=== PATIENT | female | born 1935 | race Caucasian/White ===

== ENCOUNTER 2021-02-03 05:41 | Outpatient (CLI) | payer MEDICARE, OTHER ==
[~2021-02-03] VITALS: Ht 162.6 cm; Wt 88.0 kg
[~2021-02-03 05:41] MED LIST: ALLO300T2 PO; ALLP300T PO; ANAS1TAB7 PO; DLT120CCR PO; FOSI20TA3 PO; FSNP20T PO; MULT-974 PO; NAPR220C PO; OMG1KC PO; Pregabalin PO; TIMO5DRO5 OU; TRIA1TAB3 PO
[2021-02-03 11:06] VITALS: BP 165/77
[2021-02-03 11:49] LABS: BASOPHILS # (AUTO) 0.1 10^3/uL (0.0-0.1); BASOPHILS % (AUTO) 1 % (0-10); EOSINOPHILS # (AUTO) 0.2 10^3/uL (0.0-0.3); EOSINOPHILS % (AUTO) 2 % (0-10); HEMATOCRIT 37 % (35-52); HEMOGLOBIN 12.4 g/dL (11.5-16.0); LYMPHOCYTES # (AUTO) 2.6 10^3/uL (1.0-4.0); LYMPHOCYTES % (AUTO) 33 % (12-44); MEAN CORPUSCULAR HEMOGLOBIN 32 pg (25-34); MEAN CORPUSCULAR HGB CONC 34 g/dL (32-36); MEAN CORPUSCULAR VOLUME 95 fL (80-99); MEAN PLATELET VOLUME 10.3 fL (9.0-12.2); MONOCYTES # (AUTO) 0.5 10^3/uL (0.0-1.0); MONOCYTES % (AUTO) 6 % (0-12); NEUTROPHILS # (AUTO) 4.4 10^3/uL (1.8-7.8); NEUTROPHILS % (AUTO) 57 % (42-75); PLATELET COUNT 215 10^3/uL (130-400); WHITE BLOOD COUNT 7.7 10^3/uL (4.3-11.0)
[2021-02-03] MEDS ORDERED: TIMO5DRO5 OU (11:49)
[2021-02-03] MEDS ORDERED: TRIA1CAP4 PO (11:49)
[2021-02-03] MEDS ORDERED: LOPE-134 PO (11:49)
[2021-02-03] MEDS ORDERED: MULT-1136 PO (11:49)
[2021-02-03] MEDS ORDERED: ALLO300T2 PO (11:49)
[2021-02-03] MEDS ORDERED: FOSI10TA6 PO (11:49)
[2021-02-03 12:07] LABS: CALCIUM 9.2 MG/DL (8.5-10.1); CREATININE SERUM 1.58 MG/DL (0.60-1.30)
== END 2021-02-03 12:17 ==
LOC: PREOP 05:41
PROVIDERS: ATTEND Otolaryngology Otolaryngology/Facial Plastic Surgery
DX: Z01.812 Encounter for preprocedural laboratory examination (principal); Z01.810 Encounter for preprocedural cardiovascular examination; L98.9 Disorder of the skin and subcutaneous tissue, unspecified
CPT/HCPCS: 36415; 80048; 85025; 93005

== ENCOUNTER 2021-02-10 06:27 | Day surgery (SDC) | payer MEDICARE, OTHER ==
[~2021-02-10] VITALS: Ht 162.6 cm; Wt 88.0 kg
[2021-02-10] VITALS (10 sets, daily range): BP systolic 161–184; BP diastolic 66–80
[~2021-02-10 06:27] MED LIST changes: +FOSI10TA6 PO; +LOPE-134 PO; +MULT-1136 PO; +TRIA1CAP4 PO
[2021-02-10] MEDS ORDERED: ceFAZolin INJECTION 1,000 MG in WATER (STERILE) FOR INJECTION 10 ML IV ONE (06:45)
[2021-02-10] MEDS ORDERED: LACTATED RINGERS 1,000 ML IV PRN (06:45)
--- NOTE | 2021-02-10 07:23 | Progress Note-Pre Operative ---
Pre-Operative Progress Note H&P Reviewed The H&P was reviewed, patient examined and no changes noted. Date Seen by Provider: Feb 10, 2021 Time Seen by Provider: 07:30 Date H&P Reviewed: Feb 10, 2021 Time H&P Reviewed: 07:30 Pre-Operative Diagnosis: Scalp Lesion FUAD GRIDER MD Feb 10, 2021 07:23
[2021-02-10] MEDS ORDERED: proPOfol 200 MG/20 ML (DIPRIVAN) VIAL IV ONE (07:27)
[2021-02-10] MEDS ORDERED: SEVOFLURANE (ULTANE) 15 ML INHAL SOLN ONE ×2 (07:27→09:25)
[2021-02-10] MEDS ORDERED: LIDOCAINE PF 2% 5 ML (XYLOCAINE) VIAL ONE (07:27)
[2021-02-10] MEDS ORDERED: ONDANSETRON 4 MG/2 ML (SDV) Z0FRAN ONE (07:27)
[2021-02-10] MEDS ORDERED: ESMOLOL 100 MG/10 ML (BREVIBLOC) VIAL ONE (07:30)
[2021-02-10] MEDS ORDERED: LIDOCAINE/EPI 1%-1:100,000 (XYLOCAINE) 20ML ONE (07:32)
[2021-02-10] MEDS ORDERED: MUPIROCIN 2% OINT 22 GM (BACTROBAN) TUBE ONE (08:44)
--- NOTE | 2021-02-10 09:05 | Progress Note-Post Operative ---
Post-Operative Progess Note Surgeon (s)/Credit Reporter (s) Surgeon FUAD GRIDER MD Credit Reporter n/a Pre-Operative Diagnosis Scalp Lesion Post-Operative Diagnosis same Post-Op Procedure Note Date of Procedure: Feb 10, 2021 Name of Procedure Performed: Excision of 3cm by 2cm MIdline Scalp Lesion with Intermediate Repair Description & Findings Description and Findings: n/a Anesthesia Type lma Estimated Blood Loss minimal Packing none. Specimen(s) collected/removed scalp lesion for frozen section FUAD GRIDER MD Feb 10, 2021 09:05
[2021-02-10] MEDS ORDERED: ACETAMINOPHEN 325 MG TABLET PO PRN (09:15)
[2021-02-10] MEDS ORDERED: HYDROcodone/APAP 5 MG/325 MG (LORTAB) TAB PO PRN (09:15)
[2021-02-10] MEDS ORDERED: ONDANSETRON 4 MG/2 ML (SDV) Z0FRAN IVP PRN (10:00)
[2021-02-10] MEDS ORDERED: CEPH500T PO (10:55)
[2021-02-10] MEDS ORDERED: ACHD5005 PO (10:55)
== END 2021-02-10 11:25 | disposition home or self-care (01) ==
LOC: SDC 06:27
PROVIDERS: ATTEND Otolaryngology Otolaryngology/Facial Plastic Surgery
DX: C44.49 Other specified malignant neoplasm of skin of scalp and neck (principal); I10 Essential (primary) hypertension; E11.39 Type 2 diabetes mellitus with other diabetic ophthalmic complication; H42 Glaucoma in diseases classified elsewhere; E66.9 Obesity, unspecified; M19.90 Unspecified osteoarthritis, unspecified site; Z87.891 Personal history of nicotine dependence; Z79.899 Other long term (current) drug therapy; Z68.33 Body mass index [BMI] 33.0-33.9, adult; Z80.9 Family history of malignant neoplasm, unspecified; Z79.891 Long term (current) use of opiate analgesic
CPT/HCPCS: 87081; 88305; 88331; 88332; 88341; 88342; 88344

== ENCOUNTER 2021-10-17 05:35 | Outpatient (CLI) | payer MEDICARE, OTHER ==
[~2021-10-17] VITALS: Ht 165.1 cm; Wt 82.7 kg
[~2021-10-17 05:35] MED LIST changes: +ACHD5005 PO; +CEPH500T PO; +FOSI10TA PO; -FOSI10TA6 PO
== END 2021-10-18 11:03 | disposition home or self-care (01) ==
LOC: PREOP 05:35
PROVIDERS: ATTEND Otolaryngology Otolaryngology/Facial Plastic Surgery
DX: Z01.818 Encounter for other preprocedural examination (principal)

== ENCOUNTER 2021-10-20 08:31 | Day surgery (SDC) | payer MEDICARE, OTHER ==
[2021-10-20] VITALS (12 sets, daily range): BP systolic 135–226; BP diastolic 62–115
[~2021-10-20] VITALS: Ht 165.1 cm; Wt 82.7 kg
[2021-10-20] MEDS ORDERED: LIDOCAINE/EPI 1%-1:200,000 (XYLOCAINE) 30 ML VIAL ONE (09:19)
[2021-10-20] MEDS ORDERED: proPOfol 200 MG/20 ML (DIPRIVAN) VIAL IV ONE (09:31)
[2021-10-20] MEDS ORDERED: LIDOCAINE PF 2% 5 ML (XYLOCAINE) VIAL ONE (09:31)
[2021-10-20] MEDS ORDERED: ONDANSETRON 4 MG/2 ML (SDV) Z0FRAN ONE (09:31)
[2021-10-20 09:53] LABS: BASOPHILS # (AUTO) 0.1 10^3/uL (0.0-0.1); BASOPHILS % (AUTO) 1 % (0-10); EOSINOPHILS # (AUTO) 0.2 10^3/uL (0.0-0.3); EOSINOPHILS % (AUTO) 3 % (0-10); HEMATOCRIT 37 % (35-52); HEMOGLOBIN 12.3 g/dL (11.5-16.0); LYMPHOCYTES # (AUTO) 2.2 10^3/uL (1.0-4.0); LYMPHOCYTES % (AUTO) 30 % (12-44); MEAN CORPUSCULAR HEMOGLOBIN 31 pg (25-34); MEAN CORPUSCULAR HGB CONC 33 g/dL (32-36); MEAN CORPUSCULAR VOLUME 94 fL (80-99); MEAN PLATELET VOLUME 10.2 fL (9.0-12.2); MONOCYTES # (AUTO) 0.5 10^3/uL (0.0-1.0); MONOCYTES % (AUTO) 7 % (0-12); NEUTROPHILS # (AUTO) 4.3 10^3/uL (1.8-7.8); NEUTROPHILS % (AUTO) 59 % (42-75); PLATELET COUNT 209 10^3/uL (130-400); WHITE BLOOD COUNT 7.3 10^3/uL (4.3-11.0)
[2021-10-20] MEDS ORDERED: ROCURONIUM 50 MG/5 ML (ZEMURON) VIAL IV ONE (10:16)
[2021-10-20 10:21] LABS: CALCIUM 9.1 MG/DL (8.5-10.1); CREATININE SERUM 1.48 MG/DL (0.60-1.30); POTASSIUM 3.7 MMOL/L (3.6-5.0)
[2021-10-20] MEDS ORDERED: MUPIROCIN 2% OINT 22 GM (BACTROBAN) TUBE ONE (10:35)
[2021-10-20] MEDS ORDERED: NEOSTIGMINE 3 MG/3 ML VIAL ONE (10:50)
[2021-10-20] MEDS ORDERED: GLYCOPYRROLATE 0.2 MG/ML (ROBINUL) 2 ML VIAL ONE (10:50)
--- NOTE | 2021-10-20 10:51 | Progress Note-Pre Operative ---
Pre-Operative Progress Note H&P Reviewed The H&P was reviewed, patient examined and no changes noted. Date Seen by Provider: Oct 20, 2021 Time Seen by Provider: 10:00 Date H&P Reviewed: Oct 20, 2021 Time H&P Reviewed: 10:00 Pre-Operative Diagnosis: Right Posterior Scalp Lesion FUAD GRIDER MD Oct 20, 2021 10:51
--- NOTE | 2021-10-20 10:52 | Progress Note-Post Operative ---
Post-Operative Progess Note Surgeon (s)/Fryline Attendant (s) Surgeon FUAD GRIDER MD Fryline Attendant n/a Pre-Operative Diagnosis Right Posterior Scalp Lesion Post-Operative Diagnosis same Post-Op Procedure Note Date of Procedure: Oct 20, 2021 Name of Procedure Performed: Excision of Right Posterior Scalp Lesion with Complex Repair Description & Findings Description and Findings: n/a Anesthesia Type get Estimated Blood Loss minimal Packing none. Specimen(s) collected/removed right posterior scalp lesion FUAD GRIDER MD Oct 20, 2021 10:52
[2021-10-20] MEDS ORDERED: LACTATED RINGERS 1,000 ML IV PRN (11:00)
[2021-10-20] MEDS ORDERED: ACETAMINOPHEN 325 MG TABLET PO PRN (11:00)
[2021-10-20] MEDS ORDERED: HYDROcodone/APAP 5 MG/325 MG (LORTAB) TAB PO PRN (11:00)
[2021-10-20] MEDS ORDERED: LABETALOL HCL 20 MG/4 ML VIAL ONE (11:19)
[2021-10-20] MEDS: LABETALOL HCL 20 MG/4 ML VIAL IV PRN ×2 (11:25→11:30)
[2021-10-20] MEDS ORDERED: ONDANSETRON 4 MG/2 ML (SDV) Z0FRAN IVP PRN (11:30)
[2021-10-20] MEDS ORDERED: morphine INJ 10 MG/ML 1ML (SYR OR VIAL) IVP ONE (11:30)
[2021-10-20] MEDS ORDERED: SEVOFLURANE (ULTANE) 15 ML INHAL SOLN ONE (12:01)
[2021-10-20] MEDS ORDERED: hydrALAZINE (APESOLINE) 20 MG/ML VIAL ONE (12:08)
--- NOTE | 2021-10-20 12:12 | Anesthesia-General Post-Op ---
General Patient Condition Mental Status/LOC: Same as Preop Cardiovascular: Satisfactory Nausea/Vomiting: Absent Respiratory: Satisfactory Pain: Controlled Complications: Absent Post Op Complications Complications None Follow Up Care/Instructions Patient Instructions None needed. Anesthesia/Patient Condition Patient Condition Patient is doing well, no complaints, she is hypertensive but at baseline. She has received labetalol 10 mg IV but now bradycardic so will give hydralazine 5 mg IV and go back to day surgery. She has no apparent adverse anesthesia problems. DAKOTA GAGE DO Oct 20, 2021 12:12
[2021-10-20] MEDS ORDERED: hydrALAZINE (APESOLINE) 20 MG/ML VIAL IV ONE (12:15)
[2021-10-20] MEDS ORDERED: CEPH500T PO (13:12)
[2021-10-20] MEDS ORDERED: ACHD5005 PO (13:12)
[2021-10-25] MEDS ORDERED: ROSU5TAB13 PO (11:03)
[2021-10-25] MEDS ORDERED: ASPI-1238 PO (11:03)
[2021-10-25] MEDS ORDERED: AMLO-250 PO (11:03)
[2021-10-25] MEDS ORDERED: CEFD300C3 PO (11:03)
== END 2021-10-20 14:25 | disposition home or self-care (01) ==
LOC: SDC 08:31
PROVIDERS: ATTEND Otolaryngology Otolaryngology/Facial Plastic Surgery
DX: C44.42 Squamous cell carcinoma of skin of scalp and neck (principal); I10 Essential (primary) hypertension; Z87.891 Personal history of nicotine dependence; Z79.899 Other long term (current) drug therapy
CPT/HCPCS: 36415; 80048; 85025; 87081; 93005

== ENCOUNTER 2021-10-23 09:32 | Observation (INO) | payer MEDICARE, OTHER ==
[~2021-10-23] VITALS: Ht 165.1 cm; Wt 82.7 kg
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
[2021-10-23 10:08] LABS: BASOPHILS # (AUTO) 0.1 10^3/uL (0.0-0.1); BASOPHILS % (AUTO) 1 % (0-10); EOSINOPHILS # (AUTO) 0.2 10^3/uL (0.0-0.3); EOSINOPHILS % (AUTO) 3 % (0-10); HEMATOCRIT 37 % (35-52); HEMOGLOBIN 12.3 g/dL (11.5-16.0); LYMPHOCYTES # (AUTO) 2.4 10^3/uL (1.0-4.0); LYMPHOCYTES % (AUTO) 32 % (12-44); MEAN CORPUSCULAR HEMOGLOBIN 32 pg (25-34); MEAN CORPUSCULAR HGB CONC 34 g/dL (32-36); MEAN CORPUSCULAR VOLUME 94 fL (80-99); MEAN PLATELET VOLUME 10.4 fL (9.0-12.2); MONOCYTES # (AUTO) 0.5 10^3/uL (0.0-1.0); MONOCYTES % (AUTO) 7 % (0-12); NEUTROPHILS # (AUTO) 4.3 10^3/uL (1.8-7.8); NEUTROPHILS % (AUTO) 57 % (42-75); PLATELET COUNT 206 10^3/uL (130-400); WHITE BLOOD COUNT 7.5 10^3/uL (4.3-11.0)
[2021-10-23 10:13] LABS: BILIRUBIN,URINE NEGATIVE (NEGATIVE); CLARITY,URINE SL CLOUDY; COLOR,URINE YELLOW; GLUCOSE, URINE (UA) NEGATIVE (NEGATIVE); KETONES,URINE NEGATIVE (NEGATIVE); LEUKOCYTE ESTERASE ,URINE TRACE (NEGATIVE); NITRITE,URINE NEGATIVE (NEGATIVE); PROTEIN,URINE TRACE (NEGATIVE)
[2021-10-23 10:22] LABS: INR 0.9 (0.8-1.4); PROTHROMBIN TIME PATIENT 12.3 SEC (12.2-14.7)
[2021-10-23 10:25] LABS: BACTERIA,URINE NEGATIVE /HPF; RBC,URINE RARE /HPF; SQUAMOUS EPITHELIAL CELL,UR 0-2 /HPF
[2021-10-23 10:28] LABS: BUN/CREATININE RATIO 21; CARBON DIOXIDE 21 MMOL/L (21-32); CHLORIDE 108 MMOL/L (98-107); CREATININE SERUM 1.35 MG/DL (0.60-1.30); GFR ESTIMATED 38; POTASSIUM 3.9 MMOL/L (3.6-5.0); SODIUM 141 MMOL/L (135-145)
--- NOTE | 2021-10-23 10:28 | Diagnostic Imaging Report ---
PROCEDURE: CT head wo r/o stroke. TECHNIQUE: Multiple contiguous axial images were obtained through the brain without the use of intravenous contrast. Auto Exposure Controls were utilized during the CT exam to meet ALARA standards for radiation dose reduction. INDICATION: Seizure-like activity. COMPARISON: 06/09/2014. FINDINGS: Cerebral cortical atrophy shows progression from prior. The ventricular calibers are congruent with the degree of sulcation. No marimar hydrocephalus. There are intracranial atherosclerotic vascular calcifications, chronic. Some chronic basal ganglier calcifications are stable. There were no findings of hemorrhage. No focal or generalized cerebral edema. No sulcal effacement. The basilar cisterns are patent. No mass or mass effect. No evidence for an elevation to the intracerebral pressures. IMPRESSION: Progressive chronic senescent findings but no hemorrhage, edema, or acute appearing abnormalities. Dictated by: Dictated on workstation # [id number]
[2021-10-23 10:29] LABS: ALANINE AMINOTRANSFERASE 17 U/L (0-55); ALBUMIN 3.9 GM/DL (3.2-4.5); ALKALINE PHOSPHATASE 62 U/L (40-136); BILIRUBIN,TOTAL 0.4 MG/DL (0.1-1.0); CALCIUM 8.8 MG/DL (8.5-10.1); FIBRIN DEGRADATION PRODUCTS 1.46 UG/ML (0.00-0.49); GLUCOSE 113 MG/DL (70-105); TOTAL PROTEIN 6.7 GM/DL (6.4-8.2)
--- NOTE | 2021-10-23 10:55 | Diagnostic Imaging Report ---
CLINICAL INDICATION: Patient with syncope. EXAM: Portable chest x-ray upright view. COMPARISON: Chest x-ray dated 06/05/2014. FINDINGS: Stable lobulated left hemidiaphragm. Lungs/pleura: Lungs are clear. There is no pneumothorax. There is no pleural effusion. Mediastinum: Stable prominence of the left hilar region. There is no significant pulmonary vascular congestion. Pulmonary vasculature: Unremarkable. Heart: There is mild cardiomegaly. Bones/extrathoracic soft tissue: There are degenerative spurs involving the thoracic spine. There are surgical clips overlying the left axillary region. IMPRESSION: 1: There is no radiographic evidence of acute cardiopulmonary process. 2: There is mild cardiomegaly with no significant pulmonary vascular congestion. Dictated by: Dictated on workstation # [id number]
[2021-10-23] MEDS ORDERED: 1/2 NS IV SOLUTION 1,000 ML IV SCH (11:30)
[2021-10-23] MEDS ORDERED: LABETALOL HCL 20 MG/4 ML VIAL IV ONE (11:30)
[2021-10-23] MEDS ORDERED: IOHEXOL 350 MG/ML 150 ML (OMNIPAQUE 350) VIAL IV ONE (11:45)
[2021-10-23] MEDS ORDERED: HOLD METFORMIN - RECEIVED CONTRAST 20 ML VIAL IV SCH (11:45)
[2021-10-23] MEDS ORDERED: NS 100 ML (IVPB) BAG IV ONE (11:45)
--- NOTE | 2021-10-23 12:15 | Diagnostic Imaging Report ---
EXAMINATION: CT angiography of the chest. TECHNIQUE: Contrast enhanced thin section helical images were obtained through the chest with intravenous contrast timed for the optimal opacification of the arterial structures per CTA protocol. Post-processing, reconstructions and interpretation of angiographic images of the vessels was performed. 3D MIP reconstructions were performed and reviewed. All CT scans use one or more of the following dose optimizing techniques: Automated exposure control, MA and/or KvP adjustment based on a patient size and exam type, or iterative reconstruction. HISTORY: Chest pain and elevated D-dimer. COMPARISON: None available. FINDINGS: There is no pulmonary embolism. There is no edema or pneumonia. No pleural effusion. No pneumothorax. No suspicious nodules. There is no axillary or supraclavicular lymphadenopathy. There is no mediastinal lymphadenopathy. There is a left-sided thyroid nodule. Heart size is normal. There are moderate coronary artery calcifications. No pericardial effusion. Aorta is normal in caliber. There is a small hiatal hernia. Limited views of the upper abdomen show stones in the gallbladder. There are no suspicious osseous lesions. IMPRESSION: 1. No pulmonary embolism. 2. Clear lungs. Dictated by: Dictated on workstation # [id number]
[2021-10-23] MEDS ORDERED: morphine INJ 4 MG/ML 1 ML (VIAL/SYRINGE) IV PRN (15:00)
[2021-10-23] MEDS ORDERED: ONDANSETRON 4 MG (ZOFRAN) ORAL DISSOLVE TAB PO PRN (15:00)
[2021-10-23] MEDS ORDERED: ANTACID SUSP 30 ML UDC (MYLANTA) PO PRN (15:00)
[2021-10-23] MEDS ORDERED: BISACODYL 10 MG SUPP (DULCOLAX) PR PRN (15:00)
[2021-10-23] MEDS ORDERED: HYDROcodone/APAP 5 MG/325 MG (LORTAB) TAB PO PRN (15:00)
[2021-10-23] MEDS ORDERED: ONDANSETRON 4 MG/2 ML (SDV) Z0FRAN IV PRN (15:00)
[2021-10-23] MEDS ORDERED: PATIENT MAY USE OWN MEDS, ALL PO SCH (15:00)
[2021-10-23] MEDS ORDERED: MELATONIN 3 MG TABLET PO PRN (15:00)
[2021-10-23] MEDS ORDERED: diphenhydrAMINE 25 MG TAB (BENADRYL) PO PRN (15:00)
[2021-10-23] MEDS ORDERED: diphenhydrAMINE 50 MG/ML INJ (BENADRYL) IVP PRN (15:00)
[2021-10-23] MEDS ORDERED: ENOXAPARIN 40 MG/0.4 ML (LOVENOX) SYR SC SCH (15:00)
[2021-10-23] MEDS ORDERED: polyethylene glycoL POWDER 17 GM (MIRALAX) PACK PO PRN (15:00)
[2021-10-23] MEDS ORDERED: MULT-1060 PO (15:19)
[2021-10-23] MEDS ORDERED: CEPH500T PO (15:19)
[2021-10-23] MEDS ORDERED: FOSI10TA PO (15:19)
[2021-10-23] MEDS ORDERED: ACET-2267 PO (15:19)
[2021-10-23] MEDS ORDERED: LACT1CAP74 PO (15:19)
[2021-10-23] MEDS: NS IV 1000 ML 1,000 ML IV SCH ×2 (15:23→23:51)
[2021-10-23 16:00] VITALS: BP 190/78
[2021-10-23 16:31] VITALS: BP 198/77
[2021-10-23] MEDS ORDERED: RT-ALBUTEROL SULF 2.5 MG/3 ML PRE-MIX VIAL INH PRN (16:45)
--- NOTE | 2021-10-23 17:59 | History & Physical-Hospitalist ---
History of Present Illness HPI/Chief Complaint Chief complaint: Altered mental status with seizure-like episode History of present illness: This is an 86-year-old white female clinic patient [facility] who presented to the [place] ER by ambulance with seizure-like activity. Her daughter was with her and has a nursing background and reported an episode of seizure-like activity. She had no postictal symptoms afterwards. She was found to have a very early UTI she was placed on Rocephin and will be provided supportive care with close monitoring and further work-up with cardiology consultation with telemetry and will order MRI of the brain. Source: patient, family Exam Limitations: no limitations Date Seen 10/23/21 Time Seen by a Provider: 18:00 Attending Physician Eden Ren Pankaj K MD Referring Physician Date of Admission Oct 23, 2021 at 14:05 Home Medications & Allergies Home Medications Reviewed patient Home Medication Reconciliation performed by pharmacy medication reconciliations airplane technician and/or nursing. Patients Allergies have been reviewed. Allergies Allergies Coded Allergies fentanyl (Verified Adverse Reaction, Severe, confusion AND LETHARGIC, 10/23/21) Past Gshxaqa-Xcsgva-Flmyer Hx Patient Social History Marrital Status: single Employed/Student: retired Tobacco Use?: No Smoking Status: Never a Smoker Use of E-Cig and/or Vaping dev: No Substance use?: No Alcohol Use?: No Pt feels they are or have been: No Immunizations Up To Date Date of Influenza Vaccine: May 10, 2020 First/Initial COVID19 Vaccinat: MODERNA Second COVID19 Vaccination Dagoberto: MODERNA Seasonal Allergies Seasonal Allergies: No Current Status Advance Directives: No Communicates: Verbally Primary Language: Sammarinese Preferred Spoken Language: Sammarinese Is interpretation needed?: No Past Medical History Surgeries: Appendectomy Currently Using CPAP: No Currently Using BIPAP: No Hypertension Chronic Diarrhea Arthritis, Gout Diabetes, Non-Insulin dep Breast What Type of Treatment Did You: Surgical Intervention Blood Disorders: No Adverse Reaction/Blood Tranf: No Family Medical History Patient reports no known family medical history. Review of Systems Constitutional: see HPI, dizziness, weakness EENTM: no symptoms reported Respiratory: no symptoms reported Cardiovascular: no symptoms reported Gastrointestinal: no symptoms reported Genitourinary: no symptoms reported Musculoskeletal: no symptoms reported Skin: no symptoms reported Psychiatric/Neurological: No Symptoms Reported All Other Systems Reviewed Negative Unless Noted: Yes Physical Exam Physical Exam Vital Signs Vital Signs - First Documented 10/23/21 10/23/21 10:33 14:30 Temp 36.7 Pulse 64 Resp 18 B/P (MAP) 198/77 (117) Pulse Ox 97 O2 Delivery Room Air Capillary Refill : Height, Weight, BMI Height: 5'6.00" Weight: 213lbs. oz. 96.639380ro; 30.33 BMI Method: General Appearance: No Apparent Distress, Chronically ill Eyes: Right Eye Normal Inspection, Right Eye PERRL HEENT: PERRL/EOMI, Normal ENT Inspection, Pharynx Normal, Moist Mucous Membranes Neck: Full Range of Motion, Normal Inspection, Non Tender Respiratory: Chest Non Tender, Lungs Clear, Normal Breath Sounds, No Accessory Muscle Use, No Respiratory Distress Cardiovascular: Regular Rate, Rhythm, No Edema, No Gallop, No JVD, No Murmur, Normal Peripheral Pulses Gastrointestinal: Normal Bowel Sounds, No Organomegaly, No Pulsatile Mass, Non Tender, Soft Back: Normal Inspection, No CVA Tenderness, No Vertebral Tenderness Extremity: Normal Capillary Refill, Normal Inspection, Normal Range of Motion, Non Tender, No Calf Tenderness, No Pedal Edema Neurologic/Psychiatric: Alert, Oriented x3, No Motor/Sensory Deficits, Normal Mood/Affect, Abnormal Gait Skin: Normal Color, Warm/Dry Lymphatic: No Adenopathy Results Results/Procedures Labs Laboratory Tests 10/23/21 09:40 Patient resulted labs reviewed. Assessment/Plan Admission Diagnosis Assessment: Seizure-like activity UTI Syncope Hypertension Advanced age Plan: Telemetry Cardiology consult MRI Monitor closely Echo Admission Status: Observation Diagnosis/Problems Diagnosis/Problems (1) Syncope Qualifiers: Encounter type: initial encounter EDEN REN DO Oct 23, 2021 17:59
--- NOTE | 2021-10-23 18:08 | Consultation-Cardiology ---
HPI-Cardiology Cardiology Consultation: Date of Consultation 10/23/2021 Date of Admission 10/23/2021 Attending Physician Eden Ren DO Admitting Physician Darren Bellamy MD Consulting Physician ERROL MARQUES JR, MD HPI: Time Seen by a Provider: 18:03 Chief Complaint: Reason for consultation: Syncope. I had the pleasure of seeing Isis on the medical/surgical unit at [facility] in [place], [place] this afternoon. She has a history of hypertension and gout but no previously known history of coronary artery disease. Last week she was here in the hospital for an outpatient procedure to have skin cancer removed from her scalp. The surgery was uneventful. Today she was at home where she li ves by herself but her daughter was there doing a dressing change on her scalp. Her daughter states that while she was changing the bandage, her mother suddenly tipped her head back and put her arm straight out to her side. Her daughter was behind the patient at that time and then moved around to the front of the patient and said that her eyes were rolled back and all she could see was the white of her eyes. Her mother's arms were shaking. She got her cell phone out to call 911 and within about 1 minute, the patient stopped shaking and woke up. The patient asked her mother what had happened and wanted to stand up. However, her daughter told her to stay in the chair. The patient does not remember the event but her daughter states that she was fairly clear very soon after this episode stopped. The patient denies any previous history of syncope or seizure disorder. She denies chest discomfort, dyspnea, paroxysmal nocturnal dyspnea, orthopnea, or palpitations. She does have some occasional lightheaded or dizzy spells this was the first time she had an episode like what happened today. She has chronic, mild bilateral lower extremity edema. Certain portions of this document may have been dictated utilizing voice recognition technology. Inherent to this technology, typographical and grammatical errors may exist. As much as I am diligent to identify and correct these mistakes, some errors may remain in the document. Review of Systems-Cardiology Review of Systems Other comments Review of 10 organ systems is as per the history of present illness, otherwise negative. QKX-Ifykad-Qxfmjn Hx Patient Social History Smoking Status: Never a Smoker 2nd Hand Smoke Exposure: No Have you traveled recently?: No Alcohol Use?: No Pt feels they are or have been: No Immunizations Up To Date Date of Influenza Vaccine: Jun 08, 2021 Past Medical History PMH As described under Assessment. Family Medical History Family Medical History: She did not report a family history of premature coronary artery disease. Family History: Patient reports no known family medical history. Allergies and Home Medications Allergies Coded Allergies: fentanyl (Verified Adverse Reaction, Severe, confusion AND LETHARGIC, 10/23/21) Patient Home Medication List Home Medication List Reviewed: Yes Acetaminophen (Tylenol Extra Strength) 500 Mg Tablet, 500 MG PO Q6H PRN for PAIN-MILD (1-4), (Reported) Entered as Reported by: SONA JACOBS on 10/23/211518 Last Action: Reviewed Allopurinol (Allopurinol) 300 Mg Tablet, 150 MG PO DAILY, (Reported) Entered as Reported by: SHAHBAZ SAMAYOA on 02/03/211148 Last Action: Reviewed Cephalexin (Cephalexin) 500 Mg Tablet, 500 MG PO TID, (Reported) Entered as Reported by: SONA JACOBS on 10/23/211518 Last Action: Reviewed Fosinopril Sodium (Fosinopril Sodium) 10 Mg Tablet, 10 MG PO DAILY, (Reported) Entered as Reported by: SONA JACOBS on 10/23/211518 Last Action: Reviewed Lactobacillus Combination No.4 (Probiotic) 1 Each Capsule, 1 EACH PO DAILY, (Reported) Entered as Reported by: SONA JACOBS on 10/23/211518 Last Action: Reviewed Multivitamin/Iron/Folic Acid (Centrum Women Tablet) 1 Each Tablet, 1 EACH PO DAILY, (Reported) Entered as Reported by: SONA JACOBS on 10/23/211518 Last Action: Reviewed Timolol Maleate (Timolol Maleate 0.5%) 5 Ml Drops, 1 DROP OU BID, (Reported) Entered as Reported by: SHAHBAZ SAMAYOA on 02/03/211148 Last Action: Reviewed Discontinued Medications Cephalexin (Cephalexin) 500 Mg Tablet, 500 MG PO TID Discontinued Reason: No Longer Taking Prescribed by: SEVEN ROJO on 02/10/21 1055 Cephalexin (Cephalexin) 500 Mg Tablet, 500 MG PO TID Discontinued Reason: No Longer Taking Prescribed by: BIMAL RODRIGUEZ on 10/20/211311 Last Action: Discontinued Fosinopril Sodium (Fosinopril Sodium) 10 Mg Tablet, 10 MG PO DAILY, (Reported) Discontinued Reason: No Longer Taking Entered as Reported by: SHAHBAZ SAMAYOA on 02/03/21 1149 Hydrocodone/Acetaminophen (Hydrocodone-Acetamin 5-325 mg) 1 Each Tablet, 1 TAB PO Q 4-6 HR PRN for PAIN-MODERATE (5-7) Discontinued Reason: No Longer Taking Prescribed by: SEVEN ROJO on 02/10/21 1055 Hydrocodone/Acetaminophen (Hydrocodone-Acetamin 5-325 mg) 1 Each Tablet, 1 TAB PO Q4H PRN for PAIN-MODERATE (5-7) Discontinued Reason: Referral/FU Appt-Addtl Prescribed by: BIMAL RODRIGUEZ on 10/20/211311 Last Action: Discontinued Loperamide HCl (Imodium A-D) 2 Mg Tablet, 2 MG PO DAILY PRN for DIARRHEA, (Reported) Discontinued Reason: No Longer Taking Entered as Reported by: SHAHBAZ SAMAYOA on 02/03/21 1149 Multivitamin (Multivitamin) 1 Each Tablet, 1 EACH PO DAILY, (Reported) Discontinued Reason: No Longer Taking Entered as Reported by: SHAHBAZ SAMAYOA on 02/03/21 1149 Triamterene/Hydrochlorothiazid (Triamterene-Hctz 37.5-25 mg Cp) 1 Each Capsule, 1 EACH PO DAILY, (Reported) Discontinued Reason: No Longer Taking Entered as Reported by: SHAHBAZ SAMAYOA on 02/03/21 1149 Exam Vital Signs Vital Signs Date Time Temp Pulse Resp B/P (MAP) Pulse Ox O2 Delivery O2 Flow Rate FiO2 10/23/21 16:31 36.7 62 96 10/23/21 16:00 18 190/78 (115) 10/23/21 14:30 Room Air Physical Exam General: Alert. No acute distress. Well nourished and appears stated age. Eye: Extraocular movements are intact. Conjunctivae are clear. There are no xanthelasma. HENT: Normocephalic. Atraumatic. Carotid pulsations 2/2 without bruits. Neck: Jugular venous pressure does not appear elevated. No thyromegaly appreciated. Respiratory: Lungs are clear to auscultation. Respirations are non-labored. Breath sounds are equal. Symmetrical chest wall expansion. Cardiovascular: Normal rate. Regular rhythm. No murmur. No gallop. Point of maximal impulse is not appear displaced. Good pulses equal in all extremities. 1+ bilateral pretibial edema. Gastrointestinal: Soft. Normal bowel sounds. Skin: Skin turgor is normal. There is no pallor. Musculoskeletal: No kyphosis or scoliosis appreciated. Neurologic: Alert and oriented to person, place, time. Cranial nerves 3-12 appear grossly intact. The patient has good motor tone strength in the upper and lower extremities bilaterally. Psychiatric: Cooperative. Appropriate mood & affect. Labs Laboratory Tests Test 10/23/21 09:40 10/23/21 10:00 Range/Units White Blood Count 7.5 4.3-11.0 10^3/uL Red Blood Count 3.91 3.80-5.11 10^6/uL Hemoglobin 12.3 11.5-16.0 g/dL Hematocrit 37 35-52 % Mean Corpuscular Volume 94 80-99 fL Mean Corpuscular Hemoglobin 32 25-34 pg Mean Corpuscular Hemoglobin Concent 34 32-36 g/dL Red Cell Distribution Width 13.0 10.0-14.5 % Platelet Count 206 130-400 10^3/uL Mean Platelet Volume 10.4 9.0-12.2 fL Immature Granulocyte % (Auto) 0 % Neutrophils (%) (Auto) 57 42-75 % Lymphocytes (%) (Auto) 32 12-44 % Monocytes (%) (Auto) 7 0-12 % Eosinophils (%) (Auto) 3 0-10 % Basophils (%) (Auto) 1 0-10 % Neutrophils # (Auto) 4.3 1.8-7.8 10^3/uL Lymphocytes # (Auto) 2.4 1.0-4.0 10^3/uL Monocytes # (Auto) 0.5 0.0-1.0 10^3/uL Eosinophils # (Auto) 0.2 0.0-0.3 10^3/uL Basophils # (Auto) 0.1 0.0-0.1 10^3/uL Immature Granulocyte # (Auto) 0.0 0.0-0.1 10^3/uL Prothrombin Time 12.3 12.2-14.7 SEC INR Comment 0.9 0.8-1.4 Activated Partial Thromboplast Time 24 24-35 SEC D-Dimer 1.46 H 0.00-0.49 UG/ML Sodium Level 141 135-145 MMOL/L Potassium Level 3.9 3.6-5.0 MMOL/L Chloride Level 108 H 98-107 MMOL/L Carbon Dioxide Level 21 21-32 MMOL/L Anion Gap 12 5-14 MMOL/L Blood Urea Nitrogen 28 H 7-18 MG/DL Creatinine 1.35 H 0.60-1.30 MG/DL Estimat Glomerular Filtration Rate 38 BUN/Creatinine Ratio 21 Glucose Level 113 H 70-105 MG/DL Calcium Level 8.8 8.5-10.1 MG/DL Corrected Calcium 8.9 8.5-10.1 MG/DL Total Bilirubin 0.4 0.1-1.0 MG/DL Aspartate Amino Transf (AST/SGOT) 22 5-34 U/L Alanine Aminotransferase (ALT/SGPT) 17 0-55 U/L Alkaline Phosphatase 62 40-136 U/L Troponin I < 0.30 <0.30 NG/ML Total Protein 6.7 6.4-8.2 GM/DL Albumin 3.9 3.2-4.5 GM/DL Thyroid Stimulating Hormone (TSH) 1.43 0.35-4.94 UIU/ML Urine Color YELLOW Urine Clarity SL CLOUDY Urine pH 7.0 5-9 Urine Specific [place] 1.020 1.016-1.022 Urine Protein TRACE H NEGATIVE Urine Glucose (UA) NEGATIVE NEGATIVE Urine Ketones NEGATIVE NEGATIVE Urine Nitrite NEGATIVE NEGATIVE Urine Bilirubin NEGATIVE NEGATIVE Urine Urobilinogen 0.2 < = 1.0 MG/DL Urine Leukocyte Esterase TRACE H NEGATIVE Urine RBC (Auto) TRACE-I H NEGATIVE Urine RBC RARE /HPF Urine WBC 2-5 /HPF Urine Squamous Epithelial Cells 0-2 /HPF Urine Crystals NONE /LPF Urine Bacteria NEGATIVE /HPF Urine Casts NONE /LPF Urine Mucus NEGATIVE /LPF Urine Culture Indicated NO Radiology Echocardiogram from earlier today showed normal left ventricular chamber size with mild concentric left ventricle hypertrophy. There was normal left ayana tricular systolic function with an estimated ejection fraction of 55-60%. Regional wall motion abnormalities cannot be excluded due to poor endocardial definition. No significant valvular pathology was identified. The pulmonary artery pressure could not be estimated due to poor image quality. ECG Impression ECG Comment Electrocardiogram shows sinus bradycardia at 59 bpm with nonspecific intraventricular conduction delay. Diagnosis/Problems Diagnosis/Problems (1) Syncope Assessment & Plan: Unclear whether or not she had syncope or possibly a seizure. However, she did not have any postictal phase and has no previous history of seizure. Her CT scan of the head was unremarkable other than age- related changes. She did have some bradycardia at the outside hospital but in [facility] has been having normal heart rates. There is no evidence of Gvjqi-Dqlnfnhxm-Prnse, Brugada syndrome, or prolonged or short QT on her resting electrocardiogram. She should continue on telemetry. We may need to have her undergo outpatient monitoring following discharge. (2) Hypertensive urgency Status: Acute Assessment & Plan: Her blood pressure was markedly elevated at the outside emergency room. She was given intravenous labetalol. Her blood pressure is improved. I would recommend resuming her JIAN inhibitor. I would avoid beta- terri due to bradycardia noted at the outside hospital. (3) Coronary artery disease without angina pectoris Assessment & Plan: She had a CT angiogram looking for pulmonary embolism which was negative. However, there was an incidental finding of coronary calcifications which is consistent with underlying coronary artery disease. I recommend she start on low strength aspirin. A lipid panel has been ordered. She may benefit from statin medication. At some point, we may want to consider an ischemic evaluation but this could certainly be done as an outpatient. I also told the patient and her family that if we were to have her undergo a stress test, the intent would be that if it was significantly abnormal, we would then recommend a cardiac catheterization. Since a cardiac catheterization is an invasive procedure, I asked him to think this over before we would even consider having her undergo a stress test. (4) Primary hypertension Assessment & Plan: I recommend resuming JIAN inhibitor. If she needs additional antihypertensive medication, I would avoid using amlodipine because she already has peripheral edema at baseline. We may be able to just maximize the JIAN inhibitor if needed. Due to her stage III chronic kidney disease, I would be cautious with diuretics. (5) Stage 3 chronic kidney disease Assessment & Plan: This will need to be monitored. Problem Qualifiers (1) Syncope: Encounter type: initial encounter ERROL MARQUES JR, MD Oct 23, 2021 18:08
[2021-10-23 19:32] VITALS: BP 168/79
[2021-10-23] MEDS: DOCUSATE SODIUM 100 MG (COLACE) CAP PO SCH (19:34)
[2021-10-23] MEDS: ACETAMINOPHEN 325 MG TABLET PO PRN (19:45)
[2021-10-23] MEDS ORDERED: TIMOLOL MALEATE 0.5% 5 ML (TIMOPTIC) BTL OU SCH (21:00)
[2021-10-23] MEDS: HYDROGEN PEROXIDE 118 ML SOLUTION TP SCH (22:42)
[2021-10-23] MEDS: MUPIROCIN 2% OINT 22 GM (BACTROBAN) TUBE TOP SCH (22:42)
[2021-10-23 23:42] VITALS: BP 167/65
[2021-10-24 03:01] VITALS: BP 186/73
[2021-10-24] MEDS: ACETAMINOPHEN 325 MG TABLET PO PRN ×2 (03:05→12:02)
[2021-10-24] MEDS: amLODIPine 5 MG (NORVASC) TAB PO SCH ×2 (07:21→08:58)
[2021-10-24 07:27] LABS: BASOPHILS % (AUTO) 1 % (0-10); EOSINOPHILS # (AUTO) 0.2 10^3/uL (0.0-0.3); EOSINOPHILS % (AUTO) 3 % (0-10); HEMATOCRIT 34 % (35-52); HEMOGLOBIN 11.5 g/dL (11.5-16.0); LYMPHOCYTES # (AUTO) 2.3 10^3/uL (1.0-4.0); LYMPHOCYTES % (AUTO) 37 % (12-44); MEAN CORPUSCULAR HEMOGLOBIN 32 pg (25-34); MEAN CORPUSCULAR HGB CONC 34 g/dL (32-36); MEAN CORPUSCULAR VOLUME 95 fL (80-99); MEAN PLATELET VOLUME 10.4 fL (9.0-12.2); MONOCYTES # (AUTO) 0.6 10^3/uL (0.0-1.0); MONOCYTES % (AUTO) 9 % (0-12); NEUTROPHILS # (AUTO) 3.3 10^3/uL (1.8-7.8); NEUTROPHILS % (AUTO) 51 % (42-75); PLATELET COUNT 195 10^3/uL (130-400); WHITE BLOOD COUNT 6.4 10^3/uL (4.3-11.0)
[2021-10-24 07:40] LABS: ALBUMIN 3.3 GM/DL (3.2-4.5); POTASSIUM 3.5 MMOL/L (3.6-5.0)
[2021-10-24 07:41] LABS: CALCIUM 8.2 MG/DL (8.5-10.1)
[2021-10-24 07:43] LABS: TOTAL PROTEIN 5.8 GM/DL (6.4-8.2)
[2021-10-24 07:44] LABS: BILIRUBIN,TOTAL 0.4 MG/DL (0.1-1.0)
[2021-10-24 07:46] LABS: CREATININE SERUM 1.44 MG/DL (0.60-1.30)
[2021-10-24 08:00] VITALS: BP 190/87
[2021-10-24] MEDS: lisINopril 10 MG (PRINIVIL) TABLET PO SCH (08:57)
[2021-10-24] MEDS: cefTRIAXone 1 GM PRE-MIX 50 ML IV SCH (08:57)
[2021-10-24] MEDS: LACTOBACILLUS ACIDOPHILUS (PROBIOTIC) CAPSULE PO SCH (08:58)
[2021-10-24] MEDS: MULTIVIT W/MINERALS TAB (THERAGRAN M) PO SCH (08:58)
[2021-10-24] MEDS: ASPIRIN E.C. 81 MG (ECOTRIN) TAB PO SCH (08:58)
[2021-10-24] MEDS: MUPIROCIN 2% OINT 22 GM (BACTROBAN) TUBE TOP SCH ×2 (08:59→20:20)
[2021-10-24] MEDS: HYDROGEN PEROXIDE 118 ML SOLUTION TP SCH ×2 (08:59→20:20)
[2021-10-24] MEDS: ALLOPURINOL 300 MG (ZYLOPRIM) TAB PO SCH (08:59)
[2021-10-24] MEDS: DOCUSATE SODIUM 100 MG (COLACE) CAP PO SCH ×2 (09:00→20:19)
[2021-10-24] MEDS ORDERED: cloNIDine 0.1 MG (CATAPRES) TAB PO PRN (09:00)
--- NOTE | 2021-10-24 09:19 | Physical Therapy Evaluation ---
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 Patient's daughter brought her to the ED Social History Home: Apartment Current Living Status: Alone Entry Into Home: Elevator Prior Prior Level of Function SCALE: Activities may be completed with or without assistive devices. 8-Vikdydngci-vmbrlno completes the activity by him/herself with no assistance from a helper. 5-Set-up or Clean-up Assistance-helper sets up or cleans up; patient completes activity. Force assists only prior to or following the activity. 4-Supervision or Touching Assistance-helper provides verbal cues and/or touching/steadying and/or contact guard assistance as patient completes activity. Assistance may be provided throughout the activity or intermittently. 3-Partial/Moderate Assistance-helper does LESS THAN HALF the effort. Force lifts, holds or supports trunk or limbs, but provides less than half the effort. 2-Substantial/Maximal Assistance-helper does MORE THAN HALF the effort. Force lifts or holds trunk or limbs and provides more than half the effort. 3-Rltxpnnwm-vifdar does ALL the effort. Patient does none of the effort to complete the activity. Or, the assistance of 2 or more helpers is required for the patient to complete the activity. If activity was not attempted, code reason: 7-Patient Refused. 9-Not Applicable-not attempted and the patient did not perform the activity before the current illness, exacerbation or injury. 10-Not Attempted due to Environmental Limitations-(lack of equipment, weather restraints, etc.). 88-Not Attempted due to Medical Conditions or Safety Concerns. Bed Mobility: 6 Transfers (B,C,W/C): 6 Gait: 6 Indoor Mobility (Ambulation): Independent Prior Devices Use: Walker PT Evaluation-Current Subjective Patient presented laying in bed and agreed to get out of bed with therapy. Objective Patient Orientation: Person, Place, Situation Attachments: IV ROM/Strength ROM Lower Extremities WFL Strength Lower Extremities 4/5 strength bilaterally grossly Integumentary/Posture Bowel Incontinence: No Bladder Incontinence: No Neuromuscular (Tone, Coordination, Reflexes) grossly intact Sensory Vision: Functional Hearing: Functional Transfers Lying to Sitting/Side of Bed(Q: 6 Sit to Stand (QC): 4 Chair/Hmh-wf-Vuhun Xfer(QC): 4 Toilet Transfer (QC): 4 Patient was independent for bed mobility and required CGA for all other transfers. Gait Does the Patient Walk?: Yes Mode of Locomotion: Walk Anticipated Mode of Locomotion: Walk Walk 10 feet (QC): 4 Walk 50 ft with 2 Turns(QC): 4 Walk 150 ft (QC): 4 Gait Assistive Device: FWW Comments/Gait Description Patient ambulated for 300' with CGA and FWW. Patient reports that she has used a FWW prior to this hospital stay and uses it all the time. Balance Sitting Static: Normal Sitting Dynamic: Normal Standing Static: Normal Standing Dynamic: Fair Assessment/Needs Patient performed a toilet transfer, bed to chair transfer and ambulated with therapy. Patient required CGA for all transfers and ambulation. Patient reported no feelings of dizziness during therapy session. Patient was left in her chair post tx with nurse call, phone, and all needs met. Rehab Potential: Good PT Jail Goals Medical Assistant Supervisor Goals PT Jail Goals Time Frame: Nov 04, 2021 Roll Left & Right (QC): 6 Sit to Lying (QC): 6 Lying-Sitting on Side/Bed(QC): 6 Sit to Stand (QC): 6 Chair/Osr-fj-Hatzg Xfer(QC): 6 Toilet Transfer (QC): 6 Does the Patient Walk: Yes Walk 10 feet (QC): 6 Walk 50ft with 2 Turns (QC): 6 Walk 150 ft (QC): 6 PT Plan Problem List Problem List: Activity Tolerance, Functional Strength, Safety, Balance, Gait, Transfer, Bed Mobility, ROM Treatment/Plan Treatment Plan: Continue Plan of Care Treatment Plan: Bed Mobility, Education, Functional Activity Lai, Functional Strength, Gait, Safety, Therapeutic Exercise, Transfers Treatment Duration: Nov 04, 2021 Frequency: 6 times per week Estimated Hrs Per Day: .25 hour per day Time/GCodes Time In: 744 Time Out: 804 Total Billed Treatment Time: 20 Total Billed Treatment 1 Visit EVMod 20 min NILA PEARSON PT Oct 24, 2021 09:19
[2021-10-24] MEDS: TIMOLOL MALEATE 0.5% 5 ML (TIMOPTIC) BTL OU SCH ×2 (09:54→20:19)
--- NOTE | 2021-10-24 11:03 | Progress Note - Hospitalist ---
Subjective HPI/CC On Admission Date Seen by Provider: Oct 24, 2021 Time Seen by Provider: 10:00 Chief complaint: Altered mental status with seizure-like episode History of present illness: This is an 86-year-old white female clinic patient [facility] who presented to the [place] ER by ambulance with seizure-like activity. Her daughter was with her and has a nursing background and reported an episode of seizure-like activity. She had no postictal symptoms afterwards. She was found to have a very early UTI she was placed on Rocephin and will be provided supportive care with close monitoring and further work-up with cardiology consultation with telemetry and will order MRI of the brain. Subjective/Events-last exam Pt is doing about the same Feels much better MRI of the brain will be obtained in case neurology needs to evaluate her PT and OT will be ordered Carotid ultrasound will also be needed Family at the bedside Review of Systems General: Fatigue, Malaise Objective Exam Vital Signs Vital Signs Date Time Temp Pulse Resp B/P (MAP) Pulse Ox O2 Delivery O2 Flow Rate FiO2 10/25/21 03:42 36.5 63 20 155/70 (98) 98 Room Air Capillary Refill : General Appearance: No Apparent Distress, WD/WN, Chronically ill Respiratory: Lungs Clear, Normal Breath Sounds Cardiovascular: Regular Rate, Rhythm Neurologic/Psychiatric: Alert, Oriented x3, No Motor/Sensory Deficits, Normal Mood/Affect Results/Procedures Lab Laboratory Tests 10/24/21 07:15 Patient resulted labs reviewed. Assessment/Plan Assessment and Plan Assess & Plan/Chief Complaint Assessment: Seizure-like activity UTI Syncope Hypertension Advanced age Plan: Telemetry Cardiology consult MRI Monitor closely Echo 10/24/2021: MRI Carotid ultrasound Blood pressure management Diagnosis/Problems Diagnosis/Problems (1) Syncope Qualifiers: Encounter type: initial encounter BONNY SAWYER DO Oct 24, 2021 11:03
--- NOTE | 2021-10-24 11:32 | Occ Therapy Progress Note ---
Therapy Progress Note Attempt x2 to see patient. On first attempt, pt with ultrasound. On second attempt pt leaving room for MRI. OT to attempt again at a later time if schedule allows. Samara Nash OT Oct 24, 2021 11:32
[2021-10-24] MEDS: NS IV 1000 ML 1,000 ML IV SCH (11:58)
[2021-10-24 12:00] VITALS: BP 148/67
--- NOTE | 2021-10-24 12:36 | Diagnostic Imaging Report ---
PROCEDURE: MR imaging of the brain without contrast. TECHNIQUE: Multiplanar, multisequence MR imaging of the brain was performed without contrast. INDICATION: Hypertension. Seizures. Recent skin cancer removed from scalp. COMPARISON: MRI brain without contrast 06/07/2014. CT head without contrast 10/23/2021. FINDINGS: Moderate generalized parenchymal volume loss. Advanced T2 hyperintensities in the supratentorial white matter have progressed since 2014 but remain in a similar distribution. No restricted water diffusion. No hemosiderin deposition or evidence of intracranial hemorrhage. The hippocampi are symmetric in size and signal. Normal morphology of the major midline structures, sella, posterior fossa and cerebellar pontine angle. No hydrocephalus or extra-axial fluid collections. Normal intracranial flow voids. Postoperative changes in the globes. Nonspecific right mastoid effusion. Paranasal sinuses are clear. Normal bone marrow signal. IMPRESSION: 1. Expected progression of generalized volume loss and nonspecific T2 hyperintensities in the supratentorial white matter compared to a 2014 exam. 2. No acute findings. No evidence of acute infarction or hemorrhage. Dictated by: Dictated on workstation # [id number]
--- NOTE | 2021-10-24 12:55 | Diagnostic Imaging Report ---
PROCEDURE: US carotid duplex, bilateral. TECHNIQUE: Multiple real-time grayscale images were obtained over the carotid arteries in various projections, bilaterally. Additional spectral analysis and color Doppler duplex images were also obtained. INDICATION: Syncope COMPARISON: None available FINDINGS: Right carotid circulation: The right common carotid artery is normal in caliber, and there is no significant stenosis. Peak systolic velocity in the right common carotid artery is 70 cm/sec. There is a small amount of atherosclerotic plaque in the carotid bulb and proximal internal carotid artery, which results in less than 50% luminal narrowing by blancas scale imaging. The peak systolic velocity in the proximal internal carotid artery is 88 cm/sec. Proximal aspect of the external carotid artery is patent with expected high resistance waveforms, and peak systolic velocity of 88 cm/sec. Left carotid circulation: The left common carotid artery is normal in caliber, and there is no significant stenosis. Peak systolic velocity in the left common carotid artery is 88 cm/sec. There is a small amount of atherosclerotic plaque in the carotid bulb and proximal internal carotid artery, which results in less than 50% luminal narrowing by blancas scale imaging. The peak systolic velocity in the proximal internal carotid artery is 81 cm/sec. Proximal aspect of the external carotid artery is patent with expected high resistance waveforms, and peak systolic velocity of 73 cm/sec. Vertebral arteries: Flow in the bilateral vertebral arteries is antegrade. IMPRESSION: 1. Less than 50% stenosis of bilateral proximal internal carotid arteries due to atherosclerotic plaquing. 2. Patent vertebral arteries with antegrade flow. Parameters based on the consensus panel Blancas-Scale and Doppler ultrasound criteria published July 2003, Radiology, Volume 229. DOPPLER (peak systolic velocity M/S Right Left CCA .70 .88 ICA Proximal .56 .56 ICA Mid .57 .74 ICA Distal .88 .81 RATIO 1.26 .93 ECA .88 .73 VERT .49 .44 Dictated by: Dictated on workstation # [id number]
[2021-10-24] MEDS ORDERED: ENOXAPARIN 30 MG/0.3 ML (LOVENOX) SYR SC SCH (15:00)
[2021-10-24 15:31] VITALS: BP 151/56
--- NOTE | 2021-10-24 17:12 | Cardiology Progress Note ---
Progress Note-Cardiology Events since last exam Date Seen by Provider: Oct 24, 2021 Time Seen by Provider: 17:07 Events since last exam I am following her due to possible syncope. She has not had any further epi sodes of syncope or altered mental status since being here in the hospital. She denies chest discomfort, dyspnea, palpitations, or ankle edema. Certain portions of this document may have been dictated utilizing voice recognition technology. Inherent to this technology, typographical and grammatical errors may exist. As much as I am diligent to identify and correct these mistakes, some errors may remain in the document. Vitals Last set of Vitals Signs Vital Signs 10/24/21 15:31 Temp 36.4 Pulse 66 Resp 18 B/P (MAP) 151/56 (87) Pulse Ox 97 O2 Delivery Room Air Labs Labs Laboratory Tests 10/24/21 07:15 Exam Vital Signs Vital Signs Date Time Temp Pulse Resp B/P (MAP) Pulse Ox O2 Delivery O2 Flow Rate FiO2 10/24/21 15:31 36.4 66 18 151/56 (87) 97 Room Air Physical Exam General: Alert. No acute distress. She is obese. Eye: No xanthelasma. HENT: Normocephalic. Neck: Jugular venous pressure does not appear elevated. Respiratory: Lungs are clear to auscultation. Respirations are non-labored. Breath sounds are equal. Symmetrical chest wall expansion. Cardiovascular: Normal rate. Regular rhythm. No murmur. No gallop. 1+ bilateral pretibial edema. Gastrointestinal: Soft. Normal bowel sounds. Skin: Warm. Dry. Neurologic: Alert and oriented to person, place, time. Cranial nerves 3-11 grossly intact. Psychiatric: Cooperative. Appropriate mood & affect. Labs Laboratory Tests Test 10/24/21 07:15 Range/Units White Blood Count 6.4 4.3-11.0 10^3/uL Red Blood Count 3.61 L 3.80-5.11 10^6/uL Hemoglobin 11.5 11.5-16.0 g/dL Hematocrit 34 L 35-52 % Mean Corpuscular Volume 95 80-99 fL Mean Corpuscular Hemoglobin 32 25-34 pg Mean Corpuscular Hemoglobin Concent 34 32-36 g/dL Red Cell Distribution Width 12.8 10.0-14.5 % Platelet Count 195 130-400 10^3/uL Mean Platelet Volume 10.4 9.0-12.2 fL Immature Granulocyte % (Auto) 0 % Neutrophils (%) (Auto) 51 42-75 % Lymphocytes (%) (Auto) 37 12-44 % Monocytes (%) (Auto) 9 0-12 % Eosinophils (%) (Auto) 3 0-10 % Basophils (%) (Auto) 1 0-10 % Neutrophils # (Auto) 3.3 1.8-7.8 10^3/uL Lymphocytes # (Auto) 2.3 1.0-4.0 10^3/uL Monocytes # (Auto) 0.6 0.0-1.0 10^3/uL Eosinophils # (Auto) 0.2 0.0-0.3 10^3/uL Basophils # (Auto) 0.0 0.0-0.1 10^3/uL Immature Granulocyte # (Auto) 0.0 0.0-0.1 10^3/uL Sodium Level 141 135-145 MMOL/L Potassium Level 3.5 L 3.6-5.0 MMOL/L Chloride Level 110 H 98-107 MMOL/L Carbon Dioxide Level 21 21-32 MMOL/L Anion Gap 10 5-14 MMOL/L Blood Urea Nitrogen 25 H 7-18 MG/DL Creatinine 1.44 H 0.60-1.30 MG/DL Estimat Glomerular Filtration Rate 35 BUN/Creatinine Ratio 17 Glucose Level 113 H 70-105 MG/DL Calcium Level 8.2 L 8.5-10.1 MG/DL Corrected Calcium 8.8 8.5-10.1 MG/DL Total Bilirubin 0.4 0.1-1.0 MG/DL Aspartate Amino Transf (AST/SGOT) 19 5-34 U/L Alanine Aminotransferase (ALT/SGPT) 16 0-55 U/L Alkaline Phosphatase 49 40-136 U/L Total Protein 5.8 L 6.4-8.2 GM/DL Albumin 3.3 3.2-4.5 GM/DL Triglycerides Level 163 H <150 MG/DL Cholesterol Level 175 < 200 MG/DL LDL Cholesterol Direct 109 1-129 MG/DL VLDL Cholesterol 33 5-40 MG/DL HDL Cholesterol 39 L 40-60 MG/DL Diagnosis/Problems Diagnosis/Problems (1) Syncope Assessment & Plan: Unclear whether or not she had syncope or possibly a seizure. However, she did not have any postictal phase and has no previous history of seizure. Her CT scan and MRI of the head was unremarkable other than age-related changes. She did have some bradycardia at the outside hospital but in our hospital has been having normal heart rates. There is no evidence of Admus-Hbxbolygj-Igdxc, Brugada syndrome, or prolonged or short QT on her resting electrocardiogram. She should continue on telemetry while in the hospital. I will make arrangements to have her undergo outpatient monitoring following discharge. (2) Hypertensive urgency Status: Acute Assessment & Plan: Her blood pressure was markedly elevated at the outside emergency room. Her antihypertensive medication has been adjusted and her blood pressure is improving. (3) Coronary artery disease without angina pectoris Assessment & Plan: She had a CT angiogram looking for pulmonary embolism which was negative. However, there was an incidental finding of coronary calcifications which is consistent with underlying coronary artery disease. I started her on low strength aspirin. A lipid panel has been ordered. She also has carotid atherosclerosis. I will start her on low-dose statin medication. If she does not want to take this, she can discuss this with her primary provider. I had discussed an ischemic evaluation with the patient and her family on the day of admission. I told him that given her age and lack of anginal symptoms, an ischemic evaluation would not necessarily be imperative. She has decided that she would not want an invasive cardiac evaluation and therefore there is no need to have her undergo a stress test. (4) Mixed hyperlipidemia Assessment & Plan: There is data that statin medications continue to provide effective secondary prevention even in patients in their 90s. Although she has not had a known myocardial infarction or stroke, she does have an evidence of coronary artery disease and carotid atherosclerosis. I have taken the liberty of ordering low-dose rosuvastatin. (5) Atherosclerosis of both carotid arteries Assessment & Plan: She has mild bilateral carotid atherosclerosis. She has no history of a stroke. I started her on low strength aspirin. I also recommend low dose statin medication. (6) Primary hypertension Assessment & Plan: As above, her blood pressure has improved. She was started on amlodipine. She will need to monitor her chronic peripheral edema after she goes home. The amlodipine may make the edema worse. (7) Stage 3 chronic kidney disease Assessment & Plan: This will need to be monitored. Problem Qualifiers (1) Syncope: Encounter type: initial encounter ERROL MARQUES JR, MD Oct 24, 2021 17:12
[2021-10-24 20:00] VITALS: BP 163/67
[2021-10-24] MEDS ORDERED: ROSUVASTATIN 5 MG (CRESTOR) TABLET PO SCH (21:00)
[2021-10-25 00:36] VITALS: BP 162/67
[2021-10-25 03:42] VITALS: BP 155/70
[2021-10-25 06:12] LABS: BASOPHILS # (AUTO) 0.1 10^3/uL (0.0-0.1); BASOPHILS % (AUTO) 1 % (0-10); EOSINOPHILS # (AUTO) 0.3 10^3/uL (0.0-0.3); EOSINOPHILS % (AUTO) 4 % (0-10); HEMATOCRIT 34 % (35-52); HEMOGLOBIN 11.3 g/dL (11.5-16.0); LYMPHOCYTES # (AUTO) 2.6 10^3/uL (1.0-4.0); LYMPHOCYTES % (AUTO) 38 % (12-44); MEAN CORPUSCULAR HEMOGLOBIN 32 pg (25-34); MEAN CORPUSCULAR HGB CONC 34 g/dL (32-36); MEAN CORPUSCULAR VOLUME 95 fL (80-99); MEAN PLATELET VOLUME 10.4 fL (9.0-12.2); MONOCYTES # (AUTO) 0.6 10^3/uL (0.0-1.0); MONOCYTES % (AUTO) 9 % (0-12); NEUTROPHILS # (AUTO) 3.3 10^3/uL (1.8-7.8); NEUTROPHILS % (AUTO) 48 % (42-75); PLATELET COUNT 187 10^3/uL (130-400); WHITE BLOOD COUNT 6.8 10^3/uL (4.3-11.0)
[2021-10-25 06:31] LABS: ALBUMIN 3.2 GM/DL (3.2-4.5); BILIRUBIN,TOTAL 0.3 MG/DL (0.1-1.0); CALCIUM 8.1 MG/DL (8.5-10.1); CREATININE SERUM 1.52 MG/DL (0.60-1.30); POTASSIUM 3.7 MMOL/L (3.6-5.0); TOTAL PROTEIN 5.7 GM/DL (6.4-8.2)
[2021-10-25 08:13] VITALS: BP 211/93
[2021-10-25] MEDS: DOCUSATE SODIUM 100 MG (COLACE) CAP PO SCH (08:32)
--- NOTE | 2021-10-25 09:39 | Cardiology Progress Note ---
Progress Note-Cardiology Events since last exam Date Seen by Provider: Oct 25, 2021 Time Seen by Provider: 09:36 Events since last exam I am following her due to syncope. She denies any recurrent syncope. Last evening the telemetry monitoring school laboratory technician noticed some T wave changes on the telemetry and notified the nurse. The nurse then did an electrocardiogram which also showed some T wave inversion in the lateral leads but reported a heart rate of 170 bpm. The notified me and I reviewed the electrocardiogram and the heart rate was actually about 70 bpm. Artifact on the tracing caused the computer to report a heart rate of 170 bpm. She denied any palpitations at that time. She denies chest pain, dyspnea at rest or any change in her mild, chronic intermittent lower extremity edema. Certain portions of this document may have been dictated utilizing voice recognition technology. Inherent to this technology, typographical and grammatical errors may exist. As much as I am diligent to identify and correct these mistakes, some errors may remain in the document. Vitals Last set of Vitals Signs Vital Signs 10/25/21 12:01 Temp 36.6 Pulse 65 Resp 20 B/P (MAP) 164/74 (104) Pulse Ox 98 O2 Delivery Room Air Labs Labs Laboratory Tests 10/25/21 05:58 Exam Vital Signs Vital Signs Date Time Temp Pulse Resp B/P (MAP) Pulse Ox O2 Delivery O2 Flow Rate FiO2 10/25/21 12:01 36.6 65 20 164/74 (104) 98 Room Air Physical Exam General: Alert. No acute distress. She is obese. Eye: No xanthelasma. HENT: Normocephalic. Neck: Jugular venous pressure does not appear elevated. Respiratory: Lungs are clear to auscultation. Respirations are non-labored. Breath sounds are equal. Symmetrical chest wall expansion. Cardiovascular: Normal rate. Regular rhythm. No murmur. No gallop. 1+ bilateral pretibial edema. Gastrointestinal: Soft. Normal bowel sounds. Skin: Warm. Dry. Neurologic: Alert and oriented to person, place, time. Cranial nerves 3-11 grossly intact. Psychiatric: Cooperative. Appropriate mood & affect. Labs Laboratory Tests Test 10/25/21 05:58 Range/Units White Blood Count 6.8 4.3-11.0 10^3/uL Red Blood Count 3.56 L 3.80-5.11 10^6/uL Hemoglobin 11.3 L 11.5-16.0 g/dL Hematocrit 34 L 35-52 % Mean Corpuscular Volume 95 80-99 fL Mean Corpuscular Hemoglobin 32 25-34 pg Mean Corpuscular Hemoglobin Concent 34 32-36 g/dL Red Cell Distribution Width 13.0 10.0-14.5 % Platelet Count 187 130-400 10^3/uL Mean Platelet Volume 10.4 9.0-12.2 fL Immature Granulocyte % (Auto) 0 % Neutrophils (%) (Auto) 48 42-75 % Lymphocytes (%) (Auto) 38 12-44 % Monocytes (%) (Auto) 9 0-12 % Eosinophils (%) (Auto) 4 0-10 % Basophils (%) (Auto) 1 0-10 % Neutrophils # (Auto) 3.3 1.8-7.8 10^3/uL Lymphocytes # (Auto) 2.6 1.0-4.0 10^3/uL Monocytes # (Auto) 0.6 0.0-1.0 10^3/uL Eosinophils # (Auto) 0.3 0.0-0.3 10^3/uL Basophils # (Auto) 0.1 0.0-0.1 10^3/uL Immature Granulocyte # (Auto) 0.0 0.0-0.1 10^3/uL Sodium Level 142 135-145 MMOL/L Potassium Level 3.7 3.6-5.0 MMOL/L Chloride Level 112 H 98-107 MMOL/L Carbon Dioxide Level 18 L 21-32 MMOL/L Anion Gap 12 5-14 MMOL/L Blood Urea Nitrogen 26 H 7-18 MG/DL Creatinine 1.52 H 0.60-1.30 MG/DL Estimat Glomerular Filtration Rate 33 BUN/Creatinine Ratio 17 Glucose Level 119 H 70-105 MG/DL Calcium Level 8.1 L 8.5-10.1 MG/DL Corrected Calcium 8.7 8.5-10.1 MG/DL Total Bilirubin 0.3 0.1-1.0 MG/DL Aspartate Amino Transf (AST/SGOT) 21 5-34 U/L Alanine Aminotransferase (ALT/SGPT) 17 0-55 U/L Alkaline Phosphatase 51 40-136 U/L Total Protein 5.7 L 6.4-8.2 GM/DL Albumin 3.2 3.2-4.5 GM/DL Diagnosis/Problems Diagnosis/Problems (1) Syncope Assessment & Plan: Unclear whether or not she had syncope or possibly a se izure. However, she did not have any postictal phase and has no previous history of seizure which makes a seizure less likely. Her CT scan and MRI of the head was unremarkable other than age-related changes. She did have some bradycardia at the outside hospital but in our hospital has been having normal heart rates. There is no evidence of Rfumu-Ycfezammy-Yhmgw, Brugada syndrome, or prolonged or short QT on her resting electrocardiogram. She should continue on telemetry while in the hospital. I will make arrangements to have her undergo outpatient monitoring following discharge. I will then plan to see her in follow-up after we have the results of the monitor. From a cardiac standpoi nt, she can be discharged home once her noncardiac issues as well as her hypertension are improved. (2) Hypertensive urgency Status: Acute Assessment & Plan: Her blood pressure was markedly elevated at the outside emergency room. Her antihypertensive medication has been adjusted and her blood pressure is improving but was markedly elevated again this morning. She may need some additional adjustments to her medication following discharge. She should have close follow-up with her primary provider following discharge. (3) Coronary artery disease without angina pectoris Assessment & Plan: She had a CT angiogram looking for pulmonary embolism which was negative. However, there was an incidental finding of coronary calcifications which is consistent with underlying coronary artery disease. I started her on low strength aspirin and low dose statin medication. If she does not want to take statin medication, she can discuss this with her primary provider. I had discussed an ischemic evaluation with the patient and her family on the day of admission. I told him that given her age and lack of anginal symptoms, an ischemic evaluation would not necessarily be imperative. She has decided that she would not want an invasive cardiac evaluation and therefore there is no need to have her undergo a stress test. (4) Atherosclerosis of both carotid arteries Assessment & Plan: She has mild bilateral carotid atherosclerosis. She has no history of a stroke. I started her on low strength aspirin. I also recommend low dose statin medication. (5) Mixed hyperlipidemia Assessment & Plan: There is data that statin medications continue to provide effective secondary prevention even in patients in their 90s. Although she has not had a known myocardial infarction or stroke, she does have an evidence of coronary artery disease and carotid atherosclerosis. I have taken the liberty of ordering low-dose rosuvastatin. (6) Primary hypertension Assessment & Plan: As above, her blood pressure had improved but was again quite high this morning before she took her medication. She was started on amlodipine. She will need to monitor her chronic peripheral edema after she goes home. The amlodipine may make the edema worse. (7) Stage 3 chronic kidney disease Assessment & Plan: This will need to be monitored longitudinally following discharge. Problem Qualifiers (1) Syncope: Encounter type: initial encounter ERROL MARQUES JR, MD Oct 25, 2021 09:39
[2021-10-25] MEDS ORDERED: NS (IVPB) 250 ML ONE (10:06)
[2021-10-25] MEDS: ASPIRIN E.C. 81 MG (ECOTRIN) TAB PO SCH (10:16)
[2021-10-25] MEDS: LACTOBACILLUS ACIDOPHILUS (PROBIOTIC) CAPSULE PO SCH (10:16)
[2021-10-25] MEDS: MULTIVIT W/MINERALS TAB (THERAGRAN M) PO SCH (10:17)
[2021-10-25] MEDS: ALLOPURINOL 300 MG (ZYLOPRIM) TAB PO SCH (10:20)
[2021-10-25] MEDS: amLODIPine 5 MG (NORVASC) TAB PO SCH (10:20)
[2021-10-25] MEDS: lisINopril 10 MG (PRINIVIL) TABLET PO SCH (10:20)
[2021-10-25] MEDS: cefTRIAXone 1 GM PRE-MIX 50 ML IV SCH (10:21)
[2021-10-25] MEDS: TIMOLOL MALEATE 0.5% 5 ML (TIMOPTIC) BTL OU SCH (10:21)
[2021-10-25] MEDS: HYDROGEN PEROXIDE 118 ML SOLUTION TP SCH (10:21)
[2021-10-25] MEDS: MUPIROCIN 2% OINT 22 GM (BACTROBAN) TUBE TOP SCH (10:22)
[2021-10-25] MEDS ORDERED: CEFD300C3 PO (11:03)
[2021-10-25] MEDS ORDERED: ASPI-1238 PO (11:03)
[2021-10-25] MEDS ORDERED: ROSU5TAB13 PO (11:03)
[2021-10-25] MEDS ORDERED: AMLO-250 PO (11:03)
--- NOTE | 2021-10-25 11:35 | Discharge Summary ---
Discharge Summary Hospital Course Was the Problem List Reviewed?: Yes Problems/Dx: (1) Syncope Qualifiers: (2) Hypertensive urgency Status: Acute (3) Coronary artery disease without angina pectoris (4) Mixed hyperlipidemia (5) Atherosclerosis of both carotid arteries (6) Primary hypertension (7) Stage 3 chronic kidney disease Hospital Course Date of Admission: Oct 23, 2021 at 14:05 Admission Diagnosis : Family Physician/Provider: Darren Bellamy MD Date of Discharge: 10/25/21 Discharge Diagnosis: Syncope, seizure-like activity, CKD, hypertension Hospital Course: Pt had an uneventful hospital course after she was admitted for observation for syncopal episode with seizure like activity per the daughter. Dr. Alexis managed her, placed her on telemetry, slight bradycardia noted. She was set for an event monitor hookup at 1 o'clock today prior to discharge. Labs remain stable, indicating chronic kidney disease no changes. IV fluids were discontinued, IV antibiotics were initiated for UTI and that was transitioned to Omnicef 300 mg BID at discharge. Overall she was ready for discharge and will have close follow up with her PCP. Labs and Pending Lab Test: Laboratory Tests 10/25/21 05:58: White Blood Count 6.8, Red Blood Count 3.56L, Hemoglobin 11.3L, Hematocrit 34L, Mean Corpuscular Volume 95, Mean Corpuscular Hemoglobin 32, Mean Corpuscular Hemoglobin Concent 34, Red Cell Distribution Width 13.0, Platelet Count 187, Mean Platelet Volume 10.4, Immature Granulocyte % (Auto) 0, Neutrophils (%) (Auto) 48, Lymphocytes (%) (Auto) 38, Monocytes (%) (Auto) 9, Eosinophils (%) (Auto) 4, Basophils (%) (Auto) 1, Neutrophils # (Auto) 3.3, Lymphocytes # (Auto) 2.6, Monocytes # (Auto) 0.6, Eosinophils # (Auto) 0.3, Basophils # (Auto) 0.1, Immature Granulocyte # (Auto) 0.0, Sodium Level 142, Potassium Level 3.7, Chloride Level 112H, Carbon Dioxide Level 18L, Anion Gap 12, Blood Urea Nitrogen 26H, Creatinine 1.52H, Estimat Glomerular Filtration Rate 33, BUN/Creatinine Ratio 17, Glucose Level 119H, Calcium Level 8.1L, Corrected Calcium 8.7, Total Bilirubin 0.3, Aspartate Amino Transf (AST/SGOT) 21, Alanine Aminotransferase (ALT/SGPT) 17, Alkaline Phosphatase 51, Total Protein 5.7L, Albumin 3.2 Home Meds Active Cefdinir 300 Mg Capsule 300 Mg PO BID Aspirin EC (Aspirin) 81 Mg Tablet.dr 81 Mg PO DAILY Amlodipine Besylate 5 Mg Tablet 5 Mg PO DAILY Rosuvastatin Calcium 5 Mg Tablet 5 Mg PO HS Reported Probiotic (Lactobacillus Combination No.4) 1 Each Capsule 1 Each PO DAILY Centrum Women Tablet (Multivitamin/Iron/Folic Acid) 1 Each Tablet 1 Each PO DAILY Tylenol Extra Strength (Acetaminophen) 500 Mg Tablet 500 Mg PO Q6H PRN Cephalexin 500 Mg Tablet 500 Mg PO TID FILLED 10-20-2021 #30/ DAY SUPPLY Fosinopril Sodium 10 Mg Tablet 10 Mg PO DAILY Allopurinol 300 Mg Tablet 150 Mg PO DAILY TAKES OF A 300MG Timolol Maleate 0.5% (Timolol Maleate) 5 Ml Drops 1 Drop OU BID Assessment/Pt Instructions PCP in 1 week Discharge Planning: <30 minutes discharge planning Discharge Instructions Discharge Diet: No Restrictions Activity as Tolerated: Yes Discharge Physical Examination Vital Signs Vital Signs Date Time Temp Pulse Resp B/P (MAP) Pulse Ox O2 Delivery O2 Flow Rate FiO2 10/25/21 08:13 36.9 72 20 211/93 (132) 99 Room Air General Appearance: No Apparent Distress, WD/WN, Chronically ill Neurologic/Psychiatric: Alert, Oriented x3, No Motor/Sensory Deficits, Normal Mood/Affect Allergies: Coded Allergies: fentanyl (Verified Adverse Reaction, Severe, confusion AND LETHARGIC, 10/23/21) Discharge Summary Date of Admission Oct 23, 2021 at 14:05 Date of Discharge Discharge Date: Oct 25, 2021 Admission Diagnosis Assessment: Seizure-like activity UTI Syncope Hypertension Advanced age Plan: Telemetry Cardiology consult MRI Monitor closely Echo Discharge Diagnosis Assessment: Seizure-like activity UTI Syncope Hypertension Advanced age Plan: Telemetry Cardiology consult MRI Monitor closely Echo 10/24/2021: MRI Carotid ultrasound Blood pressure management (1) Syncope Assessment & Plan: Unclear whether or not she had syncope or possibly a seizure. However, she did not have any postictal phase and has no previous history of seizure. Her CT scan and MRI of the head was unremarkable other than age-related changes. She did have some bradycardia at the outside hospital but in our hospital has been having normal heart rates. There is no evidence of Xtkut-Xkxsyqsfo-Dzphs, Brugada syndrome, or prolonged or short QT on her resting electrocardiogram. She should continue on telemetry while in the hospital. I will make arrangements to have her undergo outpatient monitoring following discharge. Qualifiers: (2) Hypertensive urgency Status: Acute Assessment & Plan: Her blood pressure was markedly elevated at the outside emergency room. Her antihypertensive medication has been adjusted and her blood pressure is improving. (3) Coronary artery disease without angina pectoris Assessment & Plan: She had a CT angiogram looking for pulmonary embolism which was negative. However, there was an incidental finding of coronary calcifications which is consistent with underlying coronary artery disease. I started her on low strength aspirin. A lipid panel has been ordered. She also has carotid atherosclerosis. I will start her on low-dose statin medication. If she does not want to take this, she can discuss this with her primary prov ider. I had discussed an ischemic evaluation with the patient and her family on the day of admission. I told him that given her age and lack of anginal symptoms, an ischemic evaluation would not necessarily be imperative. She has decided that she would not want an invasive cardiac evaluation and therefore there is no need to have her undergo a stress test. (4) Mixed hyperlipidemia Assessment & Plan: There is data that statin medications continue to provide effective secondary prevention even in patients in their 90s. Although she has not had a known myocardial infarction or stroke, she does have an evidence of coronary artery disease and carotid atherosclerosis. I have taken the liberty of ordering low-dose rosuvastatin. (5) Atherosclerosis of both carotid arteries Assessment & Plan: She has mild bilateral carotid atherosclerosis. She has no history of a stroke. I started her on low strength aspirin. I also recommend low dose statin medication. (6) Primary hypertension Assessment & Plan: As above, her blood pressure has improved. She was started on amlodipine. She will need to monitor her chronic peripheral edema after she goes home. The amlodipine may make the edema worse. (7) Stage 3 chronic kidney disease Assessment & Plan: This will need to be monitored. BONNY SAWYER DO Oct 25, 2021 11:35
[2021-10-25 11:57] VITALS: BP 211/93
[2021-10-25 12:01] VITALS: BP 164/74
--- NOTE | 2021-10-25 12:18 | Physical Therapy Daily Note ---
PT Daily Note-Current Subjective Pt. and family present . Pt. states she is doing better and hopes to "bust out of here" today Pain Location: No Pain Reported Mental Status Patient Orientation: Normal For Age Transfers SCALE: Activities may be completed with or without assistive devices. 0-Hiqpvwpxhm-mrcszdh completes the activity by him/herself with no assistance from a helper. 5-Set-up or Clean-up Assistance-helper sets up or cleans up; patient completes activity. [place] assists only prior to or following the activity. 4-Supervision or Touching Assistance-helper provides verbal cues and/or touching/steadying and/or contact guard assistance as patient completes activity. Assistance may be provided throughout the activity or intermittently. 3-Partial/Moderate Assistance-helper does LESS THAN HALF the effort. [place] lifts, holds or supports trunk or limbs, but provides less than half the effort. 2-Substantial/Maximal Assistance-helper does MORE THAN HALF the effort. [place] lifts or holds trunk or limbs and provides more than half the effort. 5-Rvegiguse-npjbsk does ALL the effort. Patient does none of the effort to complete the activity. Or, the assistance of 2 or more helpers is required for the patient to complete the activity. If activity was not attempted, code reason: 7-Patient Refused. 9-Not Applicable-not attempted and the patient did not perform the activity before the current illness, exacerbation or injury. 10-Not Attempted due to Environmental Limitations-(lack of equipment, weather restraints, etc.). 88-Not Attempted due to Medical Conditions or Safety Concerns. Roll Left & Right (QC): 6 Lying to Sitting/Side of Bed(Q: 6 Sit to Stand (QC): 5 Chair/Xrz-ay-Zpids Xfer(QC): 5 Gait Training Does the Patient Walk?: Yes Walk 10 feet (QC): 5 Walk 50 ft with 2 Turns(QC): 5 Walk 150 ft (QC): 5 Gait Persons Needed: 1 Gait Assistive Device: FWW 200ft SBA to CGA, no LOB, good safe use of device Exercises Seated Therapy Exercises: Ankle pumps, Sit to stand, Long arc quads, Hip flexion, Hip abd/add Seated Reps: 15 Treatments TRFs, gait, seated ex Assessment Current Status: Good Progress PT Penitentiary Goals Penitentiary Goals PT Loan Supervisor Goals Time Frame: Nov 04, 2021 Roll Left & Right (QC): 6 Sit to Lying (QC): 6 Lying-Sitting on Side/Bed(QC): 6 Sit to Stand (QC): 6 Chair/Ljv-el-Zxgfr Xfer(QC): 6 Toilet Transfer (QC): 6 Does the Patient Walk: Yes Walk 10 feet (QC): 6 Walk 50ft with 2 Turns (QC): 6 Walk 150 ft (QC): 6 PT Plan Treatment/Plan Treatment Plan: Continue Plan of Care Treatment Plan: Bed Mobility, Education, Functional Activity Lai, Functional Strength, Gait, Safety, Therapeutic Exercise, Transfers Treatment Duration: Nov 04, 2021 Frequency: 6 times per week Estimated Hrs Per Day: .25 hour per day Safety Risks/Education Patient Education: Gait Training, Transfer Techniques, Correct Positioning, Safety Issues Teaching Recipient: Patient Teaching Methods: Demonstration, Discussion Response to Teaching: Verbalize Understanding, Return Demonstration Time/GCodes Time In: 1135 Time Out: 1150 Total Billed Treatment Time: 15 Total Billed Treatment 1,gt15m TOMEKA COTTON CHILD SUPPORT SPECIALIST Oct 25, 2021 12:18
== END 2021-10-25 13:00 | disposition home or self-care (01) ==
LOC: EDUNIT# 09:32 → ER FS 09:34 → 4TH 14:05
PROVIDERS: ADMIT Internal Medicine; ATTEND Internal Medicine
DX: R55 Syncope and collapse (principal); I12.9 Hypertensive chronic kidney disease with stage 1 through stage 4 chronic kidney disease, or unspecified chronic kidney disease; N18.30 Chronic kidney disease, stage 3 unspecified; I16.0 Hypertensive urgency; I25.10 Atherosclerotic heart disease of native coronary artery without angina pectoris; N17.9 Acute kidney failure, unspecified; I65.23 Occlusion and stenosis of bilateral carotid arteries; R54 Age-related physical debility; E78.2 Mixed hyperlipidemia; K52.9 Noninfective gastroenteritis and colitis, unspecified; M19.90 Unspecified osteoarthritis, unspecified site; M10.9 Gout, unspecified; E11.9 Type 2 diabetes mellitus without complications; R79.1 Abnormal coagulation profile; N39.0 Urinary tract infection, site not specified; E86.0 Dehydration; Z79.891 Long term (current) use of opiate analgesic; Z79.899 Other long term (current) drug therapy; Z90.89 Acquired absence of other organs
CPT/HCPCS: 36415; 70450; 70551; 71045; 71275; 80053; 80061; 81000; 84443; 84484; 85025; 85379; 85610; 85730; 93005; 93306; 93880

== ENCOUNTER 2021-10-25 13:00 | Outpatient (RCR) | payer MEDICARE, OTHER ==
[~2021-10-25 13:00] MED LIST changes: +ACET-2267 PO; +AMLO-250 PO; +ASPI-1238 PO; +CEFD300C3 PO; +LACT1CAP74 PO; +MULT-1060 PO; +ROSU5TAB13 PO
== END 2021-11-06 | disposition home or self-care (01) ==
LOC: CARD 13:00
PROVIDERS: ATTEND Internal Medicine Cardiovascular Disease
DX: R55 Syncope and collapse (principal); Z53.9 Procedure and treatment not carried out, unspecified reason

== ENCOUNTER 2021-11-16 15:11 | Inpatient (IN) | payer MEDICARE, OTHER ==
[~2021-11-16] VITALS: Ht 162.6 cm; Wt 84.9 kg
--- NOTE | 2021-11-16 15:37 | Consultation-Cardiology ---
HPI-Cardiology Cardiology Consultation: Date of Consultation THIS IS A HISTORY AND PHYSICAL FOR DIRECT ADMISSION Date of Admission 11/16/2021 Attending Physician Errol Alexis Jr, MD Admitting Physician Darren Bellamy MD Consulting Physician ERROL ALEXIS JR, MD HPI: Time Seen by a Provider: 15:32 Chief Complaint: Sick sinus syndrome I had the pleasure of seeing Graham her this afternoon. I actually saw her in my office and because of the newly diagnosed sick sinus syndrome, we elected to direct admit the patient to the cardiac stepdown unit to undergo permanent pacemaker implantation in the morning. She has a history of sick sinus syndrome identified on an external pharmacy informatics specialist and November 2021, hypertension, hyperlipidemia, stage III chronic kidney disease, and obesity. I first met her in the hospital in October 2021 after she had presented with a syncopal spell. She underwent some testing in the hospital and then I asked her to undergo an external event recorder which she currently has in place. Yesterday we received notification from the company that the patient had a 9- second pause on the external monitor. Because of this, I had the patient come in for an appointment today. Yesterday she was sitting at home watching television and felt very lightheaded. She felt similar to the day she presented to the hospital. She denies syncope. She has chronic ankle swelling which might be slightly worse than usual. She denies any other specific cardiac complaints at this time. She lives alone. She does all her own cooking. She has a machinist help with house cleaning. She does her own laundry. She does not drive. She has a daughter who lives nearby and visits often. Her daughter actually brought her to her appointment today. Certain portions of this document may have been dictated utilizing voice recognition technology. Inherent to this technology, typographical and grammatical errors may exist. As much as I am diligent to identify and correct these mistakes, some errors may remain in the document. Review of Systems-Cardiology Review of Systems Other comments Review of 10 organ systems is as per the history of present illness, otherwise negative. RNI-Xfclxr-Zfrhch Hx Patient Social History 2nd Hand Smoke Exposure: No Immunizations Up To Date Date of Influenza Vaccine: Jun 08, 2021 Past Medical History PMH As described under Assessment. Family Medical History Family Medical History: She did not report a family history of premature coronary artery disease. Family History: Patient reports no known family medical history. Allergies and Home Medications Allergies Coded Allergies: fentanyl (Verified Adverse Reaction, Severe, confusion AND LETHARGIC, 10/23/21) Patient Home Medication List Home Medication List Reviewed: Yes Acetaminophen (Tylenol Extra Strength) 500 Mg Tablet, 500 MG PO Q6H PRN for PAIN-MILD (1-4), (Reported) Entered as Reported by: SONA JACOBS on 10/23/211518 Allopurinol (Allopurinol) 300 Mg Tablet, 150 MG PO DAILY, (Reported) Entered as Reported by: SHAHBAZ SAMAYOA on 02/03/21 1149 Amlodipine Besylate (Amlodipine Besylate) 5 Mg Tablet, 5 MG PO DAILY Prescribed by: BONNY SAWYER on 10/25/21 110 Aspirin (Aspirin EC) 81 Mg Tablet.dr, 81 MG PO DAILY Prescribed by: BONNY SAWYER on 10/25/21 110 Cefdinir (Cefdinir) 300 Mg Capsule, 300 MG PO BID Prescribed by: BONNY SAWYER on 10/25/21 110 Fosinopril Sodium (Fosinopril Sodium) 10 Mg Tablet, 10 MG PO DAILY, (Reported) Entered as Reported by: SONA JACOBS on 10/23/21 151 Lactobacillus Combination No.4 (Probiotic) 1 Each Capsule, 1 EACH PO DAILY, (Reported) Entered as Reported by: SONA JACOBS on 10/23/211518 Multivitamin/Iron/Folic Acid (Centrum Women Tablet) 1 Each Tablet, 1 EACH PO DAILY, (Reported) Entered as Reported by: SONA JACOBS on 10/23/211518 Rosuvastatin Calcium (Rosuvastatin Calcium) 5 Mg Tablet, 5 MG PO HS Prescribed by: BONNY SAWYER on 10/25/21 1103 Timolol Maleate (Timolol Maleate 0.5%) 5 Ml Drops, 1 DROP OU BID, (Reported) Entered as Reported by: SHAHBAZ SAMAYOA on 02/03/21 1149 Exam Vital Signs Vital Signs Date Time Temp Pulse Resp B/P (MAP) Pulse Ox O2 Delivery O2 Flow Rate FiO2 11/16/21 16:36 36.8 11/16/21 16:07 96 Room Air 11/16/21 15:56 78 11/16/21 15:45 18 181/74 Temperature 96.8. Respirations 18. Pulse 85 and regular. Blood pressure 178/86 mmHg. Height 5 foot 4 inches. Weight 193 pounds. Physical Exam General: Alert. No acute distress. Well nourished and appears stated age. She is walking with a walker. Eye: Extraocular movements are intact. Conjunctivae are clear. There are no xanthelasma. HENT: Normocephalic. Atraumatic. Carotid pulsations 2/2 without bruits. Neck: Jugular venous pressure does not appear elevated. No thyromegaly appreciated. Respiratory: Lungs are clear to auscultation. Respirations are non-labored. Breath sounds are equal. Symmetrical chest wall expansion. Cardiovascular: Normal rate. Regular rhythm. No murmur. No gallop. Point of maximal impulse is not appear displaced. Good pulses equal in all extremities. 1+ bilateral pretibial edema with compression stockings in place. Gastrointestinal: Soft. Normal bowel sounds. Skin: Skin turgor is normal. There is no pallor. Musculoskeletal: No kyphosis or scoliosis appreciated. Neurologic: Alert and oriented to person, place, time. Cranial nerves 3-12 appear grossly intact. The patient has good motor tone strength in the upper and lower extremities bilaterally. Psychiatric: Cooperative. Appropriate mood & affect. Labs Laboratory Tests Test 11/16/21 17:30 Range/Units Radiology MOBILE CARDIAC OUTPATIENT TELEMETRY-EMERGENT REPORT (11/15/2021): 1. Sinus rhythm with intermittent sinus bradycardia and sinus tachycardia with multiple pauses the longest being 9 seconds. LABS (10/25/2021): Hemoglobin 11.3. Platelets 187,000. ULTRASOUND CAROTID DUPLEX, BILATERAL (10/24/2021): 1. Less than 50% stenosis of bilateral proximal internal carotid arteries due to atherosclerotic plaquing. 2. Patent vertebral arteries with antegrade flow. ECHOCARDIOGRAM (10/23/2021): 1. This is a technically difficult study due to poor image quality secondary to the patient's body habitus and no subcostal views could be obtained. 2. Normal left ventricular chamber size with mild concentric left ventricular perjury. Normal left ventricular systolic function with an estimated ejection fraction of 55-60%. Regional wall motion abnormalities cannot be excluded due to poor endocardial definition. 3. Doppler parameters are consistent with grade 1 diastolic dysfunction. 4. The pulmonary artery pressure cannot be estimated on this study due to inadequate tricuspid regurgitant envelope. ELECTROCARDIOGRAM (10/24/2021): Sinus rhythm with low voltage in the precordial leads, nonspecific intraventricular conduction delay and nonspecific T wave changes in the lateral leads. LABS (10/24/2021): Sodium 141. Potassium 3.5. BUN 25. Creatinine 1.44. GFR 35. Glucose 113. Liver function tests normal. Total cholesterol 175. Triglycerides 163. HDL 39. Direct LDL 109. PORTABLE CHEST X-RAY (10/23/2021): 1: There is no radiographic evidence of acute cardiopulmonary process. 2: There is mild cardiomegaly with no significant pulmonary vascular congestion. CT ANGIOGRAPHY OF THE CHEST (10/23/2021): 1. No pulmonary embolism. 2. Clear lungs. LABS (10/23/2021): TSH 1.43. Diagnosis/Problems Diagnosis/Problems (1) Sick sinus syndrome Assessment & Plan: She had a 9-second pause on her external pharmacy informatics specialist. I have direct admitted her for permanent pacemaker implantation tomorrow. Benefits and risks of the procedure were explained to the patient including infection, bleeding, pneumothorax, cardiac puncture, as well as rare incidence of . (2) Primary hypertension Assessment & Plan: Blood pressures are elevated. We may need to adjust her medication. (3) Mixed hyperlipidemia Assessment & Plan: Resume statin. (4) Atherosclerosis of both carotid arteries Assessment & Plan: She has mild bilateral disease. Continue Aspirin and statin. (5) Stage 3 chronic kidney disease Assessment & Plan: We need to watch her renal function closely. (6) Obesity Assessment & Plan: She needs to work on weight loss. ERROL ALEXIS JR, MD Nov 16, 2021 15:37
[2021-11-16] MEDS ORDERED: ceFAZolin INJECTION 1,000 MG VIAL IV NR (16:00)
[2021-11-16] MEDS ORDERED: ZOLPIDEM 5 MG (AMBIEN) TAB PO PRN (16:00)
[2021-11-16] MEDS ORDERED: ANTACID SUSP 30 ML UDC (MYLANTA) PO PRN (16:00)
--- NOTE | 2021-11-16 16:32 | Diagnostic Imaging Report ---
EXAMINATION: Chest 2 view. HISTORY: Sick sinus syndrome. COMPARISON: 06/05/2014. FINDINGS: Heart size and pulmonary vasculature are normal. Left-sided cardiac device is present. The lungs are clear without consolidation, pleural effusion or pneumothorax. Degenerative changes of the thoracic spine. Osseous structures are otherwise intact. IMPRESSION: No acute radiographic abnormality in the chest. Dictated by: Dictated on workstation # [id number]
[2021-11-16 17:48] LABS: POTASSIUM 4.1 MMOL/L (3.6-5.0)
[2021-11-16 17:50] LABS: CALCIUM 9.6 MG/DL (8.5-10.1)
[2021-11-16 17:51] LABS: TOTAL PROTEIN 6.9 GM/DL (6.4-8.2)
[2021-11-16 17:53] LABS: BILIRUBIN,TOTAL 0.4 MG/DL (0.1-1.0)
[2021-11-16 17:54] LABS: CREATININE SERUM 1.4 MG/DL (0.60-1.30)
[2021-11-16 17:58] LABS: BASOPHILS # (AUTO) 0.1 10^3/uL (0.0-0.1); BASOPHILS % (AUTO) 1 % (0-10); EOSINOPHILS # (AUTO) 0.2 10^3/uL (0.0-0.3); EOSINOPHILS % (AUTO) 3 % (0-10); HEMATOCRIT 38 % (35-52); HEMOGLOBIN 12.4 g/dL (11.5-16.0); LYMPHOCYTES # (AUTO) 2.5 10^3/uL (1.0-4.0); LYMPHOCYTES % (AUTO) 33 % (12-44); MEAN CORPUSCULAR HEMOGLOBIN 32 pg (25-34); MEAN CORPUSCULAR HGB CONC 33 g/dL (32-36); MEAN CORPUSCULAR VOLUME 96 fL (80-99); MEAN PLATELET VOLUME 10.6 fL (9.0-12.2); MONOCYTES # (AUTO) 0.5 10^3/uL (0.0-1.0); MONOCYTES % (AUTO) 7 % (0-12); NEUTROPHILS # (AUTO) 4.4 10^3/uL (1.8-7.8); NEUTROPHILS % (AUTO) 57 % (42-75); PLATELET COUNT 219 10^3/uL (130-400); WHITE BLOOD COUNT 7.7 10^3/uL (4.3-11.0)
[2021-11-16] MEDS ORDERED: amLODIPine 5 MG (NORVASC) TAB PO NR (18:00)
[2021-11-16 18:04] LABS: INR 0.9 (0.8-1.4); PROTHROMBIN TIME PATIENT 12.9 SEC (12.2-14.7)
[2021-11-16] MEDS: TIMOLOL MALEATE 0.5% 5 ML (TIMOPTIC) BTL OU SCH (19:55)
[2021-11-16] MEDS: ROSUVASTATIN 5 MG (CRESTOR) TABLET PO SCH (19:55)
[2021-11-17] MEDS ORDERED: LIDOCAINE 1% INJ 50 ML (XYLOCAINE) VIAL ONE (06:54)
[2021-11-17] MEDS ORDERED: HEParin (CATH LAB) 1,000 ML IV ONE (06:54)
[2021-11-17] MEDS ORDERED: NS IV 1000 ML 1,000 ML ONE ×2 (06:54→07:47)
[2021-11-17] MEDS ORDERED: MIDAZOLAM 5 MG/5 ML (VERSED) VIAL ONE ×2 (07:20→08:22)
[2021-11-17] MEDS ORDERED: ceFAZolin INJECTION 1,000 MG ONE (07:20)
[2021-11-17] MEDS ORDERED: NS (IVPB) 50 ML INJ NR (08:00)
[2021-11-17] MEDS ORDERED: ceFAZolin INJECTION 1,000 MG VIAL IV NR (08:00)
[2021-11-17] MEDS ORDERED: diphenhydrAMINE 50 MG/ML INJ (BENADRYL) ONE (08:19)
--- NOTE | 2021-11-17 09:09 | Conscious Sedation/ASA ---
Conscious Sedation Pre-Proced Time 08:00 ASA Score 3 For ASA 3 and 4: Consider anesthesia and medical clearance. Also, for patients with a history of failed moderate sedation consider anesthesia. Airway Lungs Heart ASA score ASA 1: a normal healthy patient ASA 2: a patient with a mild systemic disease (mid diabetes, controlled hypertension, obesity x ASA 3: a patient with a severe systemic disease that limits activity (angina, COPD, prior Myocardial infarction) ASA 4: a patient with an incapacitating disease that is a constant threat to life (CHF, renal failure) ASA 5: a moribund patient not expected to survive 24 hrs. (ruptured aneurysm) ASA 6: a declared brain- patient whose organs are being harvested. For emergent operations, add the letter E after the classification Mallampati Classification Grade 3 Sedation Plan Analgesia, Amnesia, Plan communicated to team members, Discussed options with patient/fam, Discussed risks with patient/fam The patient is an appropriate candidate to undergo the planned procedure, sedation, and anesthesia. The patient immediately re-assessed prior to indication. BEST MAYA MD Nov 17, 2021 09:09
--- NOTE | 2021-11-17 09:11 | Cardiac Procedure Note ---
Cardiology Procedures Date of Procedure 11/17/21 Venogram Attempt for pacemaker placement. Procedure note: 86 years old lady with sinus node dysfunction, syncope, had long pauses on event recorder up to 9 seconds. Patient was scheduled for pacemaker implantation. After explaining the procedure to the patient and the family, all pros and cons were explained, placed on the Voice Over Announcer table, conscious sedation achieved using Versed and Benadryl. Local anesthesia applied. Multiple attempt to access the left subclavian vein was unsuccessful. I was able to get the vein with the needle, the J-wire continue to go up in the left side of the neck. I had multiple sticks in the left subclavian artery, and one of the sticks there was some air return. I aborted the procedure out of concern of having a pneumothorax and stenosis. Venogram showed stenosis in the left subclavian vein. 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
--- NOTE | 2021-11-17 09:20 | Diagnostic Imaging Report ---
INDICATION: Pacemaker attempt. TIME OF EXAM: 9:11 AM Correlation is made with prior chest from 10/23/2021. The heart size normal. No pneumothorax is detected. The lungs are clear. No effusion. Surgical clips left axilla. IMPRESSION: No evidence of pneumothorax. Dictated by: Dictated on workstation # [id number]
[2021-11-17] MEDS: ALLOPURINOL 100 MG (ZYLOPRIM) TAB PO SCH (10:49)
[2021-11-17] MEDS: ASPIRIN E.C. 81 MG (ECOTRIN) TAB PO SCH (10:49)
[2021-11-17] MEDS: lisINopril 10 MG (PRINIVIL) TABLET PO SCH (10:49)
[2021-11-17] MEDS: amLODIPine 5 MG (NORVASC) TAB PO SCH (10:49)
[2021-11-17] MEDS: TIMOLOL MALEATE 0.5% 5 ML (TIMOPTIC) BTL OU SCH ×2 (10:51→20:39)
[2021-11-17] MEDS ORDERED: AMLO-250 PO (13:21)
[2021-11-17] MEDS ORDERED: ROSU5TAB13 PO (13:21)
[2021-11-17] MEDS ORDERED: ASPI-1238 PO (13:22)
--- NOTE | 2021-11-17 15:55 | Cardiology Progress Note ---
Subjective Date Seen by Provider: Nov 17, 2021 Time Seen by Provider: 15:53 Subjective/Events-last exam Patient was seen at bedside, sitting and eating lunch. Feeling better. No new complaint. Review of Systems General: No Chills, No Night Sweats, No Fatigue, No Malaise, No Appetite, No Other HEENT: No Head Aches, No Visual Changes, No Eye Pain, No Ear Pain, No Dy sphasia, No Sinus Congestion, No Post Nasal Drip, No Sore Throat, No Other Pulmonary: No Dyspnea, No Cough, No Pleuritic Chest Pain, No Other Cardiovascular: No: Chest Pain, Palpitations, Orthopnea, Paroxysmal Noc. Dyspnea, Edema, Lt Headedness, Other Objective-Cardiology Exam Last Set of Vital Signs Vital Signs 11/17/21 11/17/21 13:00 15:45 Temp 36.5 Pulse 77 Resp 6 B/P (MAP) 152/76 Pulse Ox 93 O2 Delivery Nasal Cannula O2 Flow Rate 2.00 I&O Intake and Output 11/17/21 00:00 Intake Total 490 ml Balance 490 ml Intake Oral 490 ml # Voids 1 Daily Weight Change No General: Alert, Oriented X3, Cooperative HEENT: Atraumatic, PERRLA Neck: Supple, No JVD, No Thyromegaly Lungs: Clear to Auscultation, Normal Air Movement Heart: Regular Rate, Normal S1, Normal S2, No Murmurs Abdomen: Normal Bowel Sounds, Soft, No Tenderness, No Hepatosplenomegaly, No Masses Extremities: No Clubbing, No Cyanosis, No Edema, Normal Pulses, No Tenderness/Swelling Skin: No Rashes, No Breakdown, No Significant Lesion Neuro: Normal Gait, Normal Speech, Strength at 5/5 X4 Ext, Normal Tone, Sensation Intact Psych/Mental Status: Mental Status NL, Mood NL Results Lab Laboratory Tests 11/16/21 17:30 A/P-Cardiology Admission Diagnosis Syncope Sinus node dysfunction Hypertension Hyperlipidemia Assessment/Plan Syncope, sinus node dysfunction with long pauses up to 9 seconds. Symptomatic. Planning for pacemaker implant Attempt for access the left subclavian vein has failed due to subclavian vein stenosis. I am concerned about pneumothorax, chest x-ray today did not show any, I will repeat chest x-ray in the morning then plan to access through the right side. Hypertension, restart home medication monitor blood pressure Hyperlipidemia, monitor lipids BEST MAYA MD Nov 17, 2021 15:55
[2021-11-17] MEDS: ROSUVASTATIN 5 MG (CRESTOR) TABLET PO SCH (20:40)
[2021-11-17] MEDS: ACETAMINOPHEN 325 MG TABLET PO PRN (20:40)
--- NOTE | 2021-11-18 07:22 | Diagnostic Imaging Report ---
EXAMINATION: Chest 1 view HISTORY: Pacemaker placement COMPARISON: 11/17/2021 FINDINGS: Heart size and pulmonary vasculature are normal. The lungs are clear without consolidation, pleural effusion, or pneumothorax. The osseous structures are intact. Interval placement of a left-sided cardiac device. Left axillary surgical clips are unchanged. IMPRESSION: 1. Left-sided cardiac device placement without pneumothorax or other acute radiographic abnormality in the chest. Dictated by: Dictated on workstation # [id number]
[2021-11-18] MEDS: TIMOLOL MALEATE 0.5% 5 ML (TIMOPTIC) BTL OU SCH ×2 (08:21→20:27)
--- NOTE | 2021-11-18 10:11 | Cardiology Progress Note ---
Subjective Date Seen by Provider: Nov 18, 2021 Time Seen by Provider: 10:10 Subjective/Events-last exam Patient was seen at bedside laying down comfortably, no new complaint, denied any chest pain Review of Systems General: No Chills, No Night Sweats, No Fatigue, No Malaise, No Appetite, No Other HEENT: No Head Aches, No Visual Changes, No Eye Pain, No Ear Pain, No Dysphasia, No Sinus Congestion, No Post Nasal Drip, No Sore Throat, No Other Pulmonary: No Dyspnea, No Cough, No Pleuritic Chest Pain, No Other Cardiovascular: No: Chest Pain, Palpitations, Orthopnea, Paroxysmal Noc. Dyspnea, Edema, Lt Headedness, Other Objective-Cardiology Exam Last Set of Vital Signs Vital Signs 11/18/21 11/18/21 08:00 09:00 Temp 36.5 Pulse 74 Resp 33 B/P (MAP) 141/63 Pulse Ox 94 O2 Delivery Nasal Cannula O2 Flow Rate 2.00 I&O Intake and Output 11/17/21 23:59 Intake Total 850 ml Balance 850 ml Intake Oral 800 ml IV Total 50 ml # Voids 5 # Bowel Movements 1 General: Alert, Oriented X3, Cooperative HEENT: Atraumatic, PERRLA Neck: Supple, No JVD, No Thyromegaly Lungs: Clear to Auscultation, Normal Air Movement Heart: Regular Rate, Normal S1, Normal S2, No Murmurs Abdomen: Normal Bowel Sounds, Soft, No Tenderness, No Hepatosplenomegaly, No Masses Extremities: No Clubbing, No Cyanosis, No Edema, Normal Pulses, No Tenderness/Swelling Skin: No Rashes, No Breakdown, No Significant Lesion Neuro: Normal Gait, Normal Speech, Strength at 5/5 X4 Ext, Normal Tone, Sensation Intact Psych/Mental Status: Mental Status NL, Mood NL A/P-Cardiology Admission Diagnosis Syncope Sinus node dysfunction Hypertension Hyperlipidemia Assessment/Plan Syncope, sinus node dysfunction with long pauses up to 9 seconds. Symptomatic. Attempt for access the left subclavian vein has failed due to subclavian vein stenosis. Chest x-ray was done yesterday and repeated this morning, no pneumothorax was noted. I am planning to proceed with pacemaker implantation on the right side. Hypertension, restart home medication monitor blood pressure Hyperlipidemia, monitor lipids BEST MAYA MD Nov 18, 2021 10:11
[2021-11-18] MEDS: NS IV 1000 ML 1,000 ML IV SCH ×2 (11:12→20:29)
[2021-11-18] MEDS ORDERED: MIDAZOLAM 5 MG/5 ML (VERSED) VIAL ONE (13:13)
[2021-11-18] MEDS ORDERED: LIDOCAINE 2% 20 ML (XYLOCAINE) VIAL ONE (13:13)
[2021-11-18] MEDS ORDERED: NS IV 1000 ML 1,000 ML ONE ×2 (13:14→13:15)
[2021-11-18] MEDS ORDERED: HEParin (CATH LAB) 1,000 ML IV ONE (13:15)
[2021-11-18] MEDS ORDERED: ceFAZolin INJECTION 1,000 MG ONE (13:23)
[2021-11-18] MEDS ORDERED: KETAMINE 50 MG/5 ML SYRINGE ONE (13:39)
[2021-11-18] MEDS ORDERED: PATIENT MAY USE OWN MEDS, ALL PO SCH (15:15)
[2021-11-18] MEDS ORDERED: NS IV 1000 ML 1,000 ML IV SCH (15:15)
--- NOTE | 2021-11-18 15:17 | Permanent Pacemaker Implant ---
Dual Chamber Pacemaker Implant PROCEDURE PHYSICIAN: Sly Dailey DUAL CHAMBER PACEMAKER IMPLANTATION: DATE OF PROCEDURE: 11/18/21 REFERRING PHYSICIAN: Dr. Austin Alexis INDICATION: Syncope, sinus pause PREOPERATIVE DIAGNOSIS: Sinus node dysfunction POSTOPERATIVE DIAGNOSIS: Sinus node dysfunction HISTORY: Dual-chamber permanent pacemaker was recommended. PROCEDURE PERFORMED: 1. Dual-chamber permanent pacemaker implantation. 2. Fluoroscopy. 3. Central venous access. ANESTHESIA: Local anesthesia, conscious sedation. COMPLICATIONS: None. ESTIMATED BLOOD LOSS:20 mL. SPECIMENS: None. ORAL ANTICOAGULATION: None. FLUOROSCOPY TIME: FLUOROSCOPY DOSE: CONTRAST DOSE: PROCEDURE DETAILS: 86-year-old lady with history of syncope, sinus pause up to 9-second, documented syncope and sinus node dysfunction, scheduled for dual-chamber pacemaker implantation. Patient was placed on the cardiac catheterization laboratory, cautioned sedation achieved with the assistance of anesthesia. Local anesthesia applied. I also had difficulty accessing the right subclavian vein, after multiple attempt I was able to access the right subclavian vein and placed a Storq wire through the vein down to the inferior vena cava. Then I placed 5 Namibian dilator and exchanged the wire and used short J-wire. Skin pocket was created and 2 silks were placed in the pocket then I placed 7 [place]ian sheath and advanced a second wire through the sheath then removed the sheath and placed it again over one wire. Then the ventricular lead was advanced, after 2 attempts I was able to acquire a good position. Second sheath was placed over the J-wire and I advanced the atrial lead, it required 3 attempts to be able to get that good position. Initially the threshold was between 2 and 3. After waiting for 5 minutes the threshold went down to 0.7. I was satisfied both sheath were removed and both leads were secured then they were connected to a pacemaker device and it was placed in a VINCENT patch, the device was placed in the pocket and the pocket was closed on multiple layers. No complication noted. DEVICE INFORMATION: CLAU XT MRI [id number] RA LEAD: [id number] RV LEAD: [id number] PER-OPERATIVE DEVICE INTERROGATION: Good sensing and capture activity IMMEDIATE POSTOPERATIVE DEVICE INTERROGATION: Right atrium, bipolar, pulse width 0.4 ms at 1 V, impedance 550, P wave 2.5 mV. Right ventricle, bipolar, pulse width 0.4 ms at 1 V, impedance 770, R wave 6 mV PLAN: The patient transferred to the ICU. We will continue with two more doses of IV antibiotics. We will check a chest x-ray and interrogate the device in the morning. The patient will continue on oral antibiotics for 5 days. CONCLUSION: Successful dual chamber pacemaker implantation with no complication SLY DAILEY MD Nov 18, 2021 15:17
[2021-11-18] MEDS: lisINopril 10 MG (PRINIVIL) TABLET PO SCH (15:57)
[2021-11-18] MEDS: amLODIPine 5 MG (NORVASC) TAB PO SCH (15:57)
[2021-11-18] MEDS: ALLOPURINOL 100 MG (ZYLOPRIM) TAB PO SCH (15:57)
[2021-11-18] MEDS ORDERED: PROPOFOL INJECTION 50 ML IV ONE (15:58)
[2021-11-18] MEDS ORDERED: LIDOCAINE PF 2% 5 ML (XYLOCAINE) VIAL ONE (15:58)
[2021-11-18] MEDS: ASPIRIN E.C. 81 MG (ECOTRIN) TAB PO SCH (16:01)
--- NOTE | 2021-11-18 16:10 | Diagnostic Imaging Report ---
INDICATION: Right-sided pacemaker placement. TIME OF EXAM: 3:42 PM. COMPARISON: Correlation is made with prior chest from earlier the same day. Right-sided pacemaker has been placed and has lead tips in the region of the right atrium and right ventricle. Lungs are clear. There is no pneumothorax. Surgical clips in left axilla are noted. IMPRESSION: Right-sided pacemaker placement. No pneumothorax is detected. Dictated by: Dictated on workstation # [id number]
[2021-11-18] MEDS: ROSUVASTATIN 5 MG (CRESTOR) TABLET PO SCH (20:27)
[2021-11-18] MEDS: ACETAMINOPHEN 325 MG TABLET PO PRN (20:28)
[2021-11-18] MEDS: ceFAZolin INJECTION 1,000 MG in NS (IVPB) 50 ML IV SCH (20:34)
[2021-11-19] MEDS: NS IV 1000 ML 1,000 ML IV SCH (05:18)
[2021-11-19] MEDS: ceFAZolin INJECTION 1,000 MG in NS (IVPB) 50 ML IV SCH (05:18)
--- NOTE | 2021-11-19 07:16 | Discharge Inst-Post CATH ---
Discharge Inst-CATH/EP Problems Reviewed?: Yes Post Cardiac Cath/EP D/C Inst Follow Up/Plan Appointment with Dr Alexis in one week <b>CARDIAC CATH/EP PROCEDURE DISCHARGE INSTRUCTIONS</b> ACTIVITY * Go Home directly and rest. * Limit activity of the leg (or wrist if it was used) for 7 days including aerobics, swimming, jogging, bicycling, etc. * Restrict stair-climbing for 7 days if possible, if not, climb up with your non-cath leg, then bring together on the same step. * Avoid lifting, pushing, pulling or excessive movement of the affected extremity for 7 days. * Customary sexual activity may be resumed after 2 days-use caution not to use a position that strains or causes pain to the affected extremity. * No driving for 24 hours. * NO SMOKING. * Avoid straining for bowel movements for 7 days. * Gentle walking on level ground is allowed. * Returning to work will depend on the type of procedure and the results. Your doctor will discuss this with you. CALL YOUR DOCTOR FOR ANY OF THE FOLLOWING: *If bleeding from the puncture site occurs- Apply gentle pressure to site with clean cloth and call your doctor or EMS. * If a knot or lump forms under the skin, increases in size, or causes pain. * If bruising appears to be worsening or moving further down your leg instead of disappearing. * Temperature above 101 F. CARE OF YOUR GROIN INCISION; * Bruising or purple discoloration of the skin near the puncture site is common. * You may shower only, no bathtub bathing for 5 days. Be careful to avoid slipping as your leg may feel stiff. * If a closure device was used on your femoral artery, please see the attached guide regarding care of the device and your leg. * Leave dressing on FOR 24 hours. CARE OF YOUR WRIST INCISION; * Bruising or purple discoloration of the skin near the puncture site is common. * You may shower. * DO NOT submerge wrist. * Leave dressing on FOR 24 hours. BEST MAYA MD Nov 19, 2021 07:16
--- NOTE | 2021-11-19 08:58 | Tele-ICU Progress Note ---
Progress Note video rounds completed 86 y/o male with SSS Had dual chamber pacer placed yesterday Currently pulse 77 and paced BP: 138/58 O2 sat:" 96% Focused Exam Height, Weight, BMI Height: 5'6.00" Weight: 213lbs. oz. 96.071940ek; 32.52 BMI Method: Labs Labs Microbiology 11/16/21 MRSA Screen - Final, Complete MRSA not isolated ALEKSANDRA CHOWDARY MD Nov 19, 2021 08:58
[2021-11-19] MEDS: ASPIRIN E.C. 81 MG (ECOTRIN) TAB PO SCH (09:22)
[2021-11-19] MEDS: ALLOPURINOL 100 MG (ZYLOPRIM) TAB PO SCH (09:23)
[2021-11-19] MEDS: lisINopril 10 MG (PRINIVIL) TABLET PO SCH (09:23)
[2021-11-19] MEDS: amLODIPine 5 MG (NORVASC) TAB PO SCH (09:23)
[2021-11-19] MEDS: TIMOLOL MALEATE 0.5% 5 ML (TIMOPTIC) BTL OU SCH (09:25)
--- NOTE | 2021-11-19 09:51 | Cardiology Discharge Summary ---
Discharge Summary Hospital Course Problems Reviewed?: Yes Hospital Course Date of Admission: Nov 16, 2021 at 15:35 Admission Diagnosis : Family Physician/Provider: Darren Bellamy MD Date of Discharge: 11/19/21 Discharge Diagnosis: [Sinus node dysfunction Syncope Hypertension Hyperlipidemia] Hospital Course: [ Syncope, sinus node dysfunction with long pauses up to 9 seconds. 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 Successful implantation of dual-chamber pacemaker on the right side done on November 18, 2021 without any complications. Hypertension, tolerating current medications well. Hyperlipidemia, monitor lipids Planning for discharge and follow-up with Dr. Alexis as an outpatient] Labs and Pending Lab Test: Microbiology 11/16/21 MRSA Screen - Final, Complete MRSA not isolated Home Meds Active Reported Aspirin EC (Aspirin) 81 Mg Tablet.dr 81 Mg PO DAILY Rosuvastatin Calcium 5 Mg Tablet 5 Mg PO HS Amlodipine Besylate 5 Mg Tablet 5 Mg PO DAILY Probiotic (Lactobacillus Combination No.4) 1 Each Capsule 1 Each PO DAILY Centrum Women Tablet (Multivitamin/Iron/Folic Acid) 1 Each Tablet 1 Each PO DAILY Tylenol Extra Strength (Acetaminophen) 500 Mg Tablet 500 Mg PO Q6H PRN Fosinopril Sodium 10 Mg Tablet 10 Mg PO DAILY Allopurinol 300 Mg Tablet 150 Mg PO DAILY TAKES OF A 300MG Timolol Maleate 0.5% (Timolol Maleate) 5 Ml Drops 1 Drop OU BID Assessment/Pt DC Instructions Sinus node dysfunction Permanent pacemaker Syncope Arrangement for follow-up with Dr. Alexis as an outpatient and enrolled in pacemaker clinic Discharge Physical Examination Allergies: Coded Allergies: fentanyl (Verified Adverse Reaction, Severe, confusion AND LETHARGIC, ) General Appearance: No Apparent Distress, WD/WN HEENT: PERRL/EOMI, TMs Normal, Normal ENT Inspection, Pharynx Normal Respiratory: Chest Non Tender, Lungs Clear, Normal Breath Sounds, No Accessory Muscle Use, No Respiratory Distress Cardiovascular: Regular Rate, Rhythm, No Edema, No Gallop, No JVD, No Murmur, Normal Peripheral Pulses Gastrointestinal: Normal Bowel Sounds, No Organomegaly, No Pulsatile Mass, Non Tender Extremity: Normal Capillary Refill, Normal Inspection Skin: Normal Color, Warm/Dry Neurologic/Psychiatric: Alert, Oriented x3 Clinical Quality Measures Admission Status Admission Status: Inpatient Order (span 2 midnights) Reason for Inpatient Admission: Sinus node dysfunction, required monitoring after first attempt for pacemaker implant then second attempt on the next day which was successful BEST MAYA MD Nov 19, 2021 09:51
[2021-11-19 12:18] VITALS: BP 143/56
--- NOTE | 2021-11-19 13:56 | Anesthesia-General Post-Op ---
MAC Patient Condition Mental Status/LOC: Same as Preop Cardiovascular: Satisfactory Nausea/Vomiting: Absent Respiratory: Satisfactory Pain: Controlled Complications: Absent Post Op Complications Complications None Follow Up Care/Instructions Patient Instructions None needed. Anesthesiology Discharge Order Discharge Order Patient is doing well, no complaints, stable vital signs, no apparent adverse anesthesia problems. No complications reported per nursing. Spoke in detail re: sedation with patient's family at bedside. URIEL DOWLING CRNA Nov 19, 2021 13:56
--- NOTE | 2021-11-21 15:26 | Anesthesia-Procedure Note ---
Procedures/Interventions Procedure Start/Stop/Diagnosis Date of Procedure: Nov 18, 2021 Start Time: 13:42 Brief History addendum to anesthesia record- END TIME Stop Time: 15:30 URIEL DOWLING CRNA Nov 21, 2021 15:26
== END 2021-11-19 10:25 | disposition home or self-care (01) | DRG 243 ==
LOC: CSD 15:35 → ICU 11-17 09:26
PROVIDERS: ADMIT Internal Medicine Cardiovascular Disease; ATTEND Internal Medicine Cardiovascular Disease
PROC: 02H63JZ Insertion of Pacemaker Lead into Right Atrium, Percutaneous Approach (ICD-10-PCS; principal; 2021-11-18)
PROC: 02HK3JZ Insertion of Pacemaker Lead into Right Ventricle, Percutaneous Approach (ICD-10-PCS; 2021-11-18)
PROC: 0JH606Z Insertion of Pacemaker, Dual Chamber into Chest Subcutaneous Tissue and Fascia, Open Approach (ICD-10-PCS; 2021-11-18)
DX: I49.5 Sick sinus syndrome (principal); I87.1 Compression of vein; I12.9 Hypertensive chronic kidney disease with stage 1 through stage 4 chronic kidney disease, or unspecified chronic kidney disease; N18.30 Chronic kidney disease, stage 3 unspecified; E78.2 Mixed hyperlipidemia; E66.9 Obesity, unspecified; Z68.32 Body mass index [BMI] 32.0-32.9, adult; I65.23 Occlusion and stenosis of bilateral carotid arteries; Z79.82 Long term (current) use of aspirin; Z88.5 Allergy status to narcotic agent
CPT/HCPCS: 33208; 36415; 71045; 71046; 80053; 85025; 85610; 87081

== ENCOUNTER → 2021-11-27 | Outpatient (CLI) | payer MEDICARE, OTHER ==
--- NOTE | 2021-11-27 13:38 | Diagnostic Imaging Report ---
INDICATION: Pacemaker placement. TIME OF EXAM: 1:24 PM Comparison is made with prior chest from 11/16/2021. Heart size normal. A dual-lead right subclavian cardiac pacemaker has been placed. Lead tips appear to be in the region of the right atrial appendage. And right ventricle. Lungs are clear. Is no pneumothorax. There is no effusion. Surgical clips left axilla are noted. IMPRESSION: Pacemaker placement, as described. No definite complicating features are identified. Dictated by: Dictated on workstation # [id number]
== END ==
LOC: RAD FS 13:13
PROVIDERS: ATTEND Internal Medicine Cardiovascular Disease
DX: Z95.0 Presence of cardiac pacemaker (principal)
CPT/HCPCS: 71046

== ENCOUNTER → 2021-12-19 | Outpatient (CLI) | payer MEDICARE, OTHER ==
--- NOTE | 2021-12-19 13:12 | Diagnostic Imaging Report ---
INDICATION: Left knee pain. TIME OF EXAM: 11:12 AM 3 views left knee demonstrate postoperative changes of total knee arthroplasty. Prosthetic elements appear to be in good position. No fracture or loosening is identified. There is no joint effusion. IMPRESSION: Satisfactory postop appearance to the left knee. Dictated by: Dictated on workstation # [id number]
== END ==
LOC: RAD FS 10:57
PROVIDERS: ATTEND Nurse Practitioner
DX: M25.562 Pain in left knee (principal); Z98.890 Other specified postprocedural states
CPT/HCPCS: 73562

== ENCOUNTER → 2022-05-29 | Outpatient (CLI) | payer MEDICARE, OTHER ==
[~2022-05-29] MED LIST changes: -TRIA1CAP4 PO; +TRIA1CAP84 PO
[2022-05-29 11:41] LABS: CALCIUM 9.4 MG/DL (8.5-10.1); CREATININE SERUM 1.48 MG/DL (0.60-1.30); POTASSIUM 4.3 MMOL/L (3.6-5.0)
== END ==
LOC: LAB FS 10:44
PROVIDERS: ATTEND Internal Medicine Cardiovascular Disease
DX: I49.5 Sick sinus syndrome (principal); I12.9 Hypertensive chronic kidney disease with stage 1 through stage 4 chronic kidney disease, or unspecified chronic kidney disease; N18.32 Chronic kidney disease, stage 3b; Z95.0 Presence of cardiac pacemaker; E78.2 Mixed hyperlipidemia; I47.2 Ventricular tachycardia; R60.0 Localized edema; E66.9 Obesity, unspecified; Z71.89 Other specified counseling
CPT/HCPCS: 36415; 80048

== ENCOUNTER → 2022-12-27 | Outpatient (CLI) | payer MEDICARE, OTHER | LOC: CARDFS 11:29 | PROVIDERS: ATTEND Internal Medicine Cardiovascular Disease | DX: I10 Essential (primary) hypertension (principal); I25.10 Atherosclerotic heart disease of native coronary artery without angina pectoris | CPT/HCPCS: 93306 ==